=== PATIENT | female | born 1950 | race Caucasian/White ===

== ENCOUNTER 2016-05-13 20:54 | Inpatient (IN) | payer BC ==
[2016-05-13] MEDS ORDERED: SODIUM CHLORIDE 0.9% 500 ML IV STA (21:26)
[2016-05-13 22:00] LABS: Basophils # (A) 0.1 k/uL (0-0.2); Basophils % (A) 1 %; CH 32.3; CHCM 33.6; Eosinophils # (A) 0.1 k/uL (0-0.7); Eosinophils % (A) 2 %; HCT 41.6 % (34.0-46.0); HDW 2.26; HGB 13.7 gm/dL (11.4-16.0); Luc # (Auto) 0.05; Luc % (Auto) 1; Lymphocytes # (A) 0.6 k/uL (1.0-4.8); Lymphocytes % (A) 13 %; MCH 31.7 pg (25.0-35.0); MCHC 32.8 g/dL (31.0-37.0); MCV 96.6 fL (80.0-100.0); Mean Platelet Volume 8.1; Monocytes # (A) 0.4 k/uL (0-1.0); Monocytes % (A) 9 %; Neutrophils # (A) 3.1 k/uL (1.3-7.7); Neutrophils % (A) 73 %; RDW 13.8 % (11.5-15.5); WBC 4.3 k/uL (3.8-10.6); WBC (Perox) 4.34
[2016-05-13 22:10] LABS: ALT 48 U/L (9-52); AST 28 U/L (14-36); Alkaline Phosphatase 89 U/L (38-126); Anion Gap 12 mmol/L; Blood Urea Nitrogen 14 mg/dL (7-17); Calcium 9.2 mg/dL (8.4-10.2); Carbon Dioxide 28 mmol/L (22-30); Chloride 103 mmol/L (98-107); Glucose 97 mg/dL (74-99); Non-African American GFR(MDRD) >60 (>60 ml/min/1.73 sqM); Potassium 3.8 mmol/L (3.5-5.1); Sodium 143 mmol/L (137-145); Total Bilirubin 0.9 mg/dL (0.2-1.3); Total Protein 6.3 g/dL (6.3-8.2)
[2016-05-13 22:12] LABS: Partial Thromboplastin Time 24.5 sec (22.0-30.0); Prothrombin Time 10.3 sec (9.0-12.0)
--- NOTE | 2016-05-13 22:25 | XR ---
EXAMINATION TYPE: XR chest 2V DATE OF EXAM: 05/13/2016 10:20 PM COMPARISON: 06/14/2014 HISTORY: Weakness TECHNIQUE: Frontal and lateral views of the chest are obtained. FINDINGS: Heart and mediastinum are normal. Lungs are clear. Diaphragm is normal. Bony thorax is int act. IMPRESSION: Normal chest. No change.
[2016-05-13 22:31] LABS: Appearance,Urine Clear (Clear); Bacteria,Urine Rare /hpf; Bilirubin,Urine Negative (Negative); Glucose,Urine (UA) Negative (Negative); Ketones,Urine Negative (Negative); Leukocyte Esterase,Urine Negative (Negative); Nitrite,Urine Negative (Negative); Particle Count 125; Protein,Urine Negative (Negative); RBC,Urine <1 /hpf (0-5); UA Billing (MACRO vs. MICRO) MICRO; Urobilinogen,Urine <2.0 mg/dL (<2.0); WBC,Urine <1 /hpf (0-5)
[2016-05-13 22:51] LABS: Specific Gravity,Urine 1.003 (1.001-1.035)
[2016-05-13] MEDS ORDERED: NALOXONE 0.4 MG/ML 1 ML VIAL IV PRN (23:01)
[2016-05-13] MEDS ORDERED: ONDANSETRON 4 MG/2 ML VIAL IVP PRN (23:01)
[2016-05-13] MEDS ORDERED: LORazepam 2 MG/ML SYRINGE IV PRN (23:01)
--- NOTE | 2016-05-13 23:01 | ED ---
Weakness HPI - General Chief complaint: Weakness Stated complaint: numbness Time Seen by Provider: 05/13/16 21:26 Source: patient Mode of arrival: wheelchair Limitations: no limitations - History of Present Illness Initial comments: Patient complains of generalized weakness. She states that she recently had the flu. She has a history of an autoimmune demyelinating peripheral neuropathy disorder. The last time she got the flu, she wound up hitting Guillain-Hernandez syndrome. She is concerned that given the worsening in her generalized weakness that this could be going on now. She does not have any chest pain or shortness of breath. She has no belly or back pain. She has not taken any medication for the symptoms. She has no focal deficits. Her weakness does not localize anywhere. She has no headache. She does not currently have change in vision or hearing. She has no neck pain or stiffness. She has no palpitations. She was exposed to a sick contact at home. - Related Data Home Medications Medication Instructions Recorded Confirmed [place]-3 Fatty Acids/Fish Oil [Fish 1 cap PO DAILY 05/13/16 05/13/16 Oil 1,000 mg Softgel] Osteo Minerals 1 cap PO DAILY 05/13/16 05/13/16 Selenium 100 mcg PO DAILY 05/13/16 05/13/16 Sun Chorella Vitamin 1 tab PO DAILY 05/13/16 05/13/16 Vitamin B Complex Powder 0.5 dose PO DAILY 05/13/16 05/13/16 Allergies Allergy/AdvReac Type Severity Reaction Status Date / Time diphenhydramine Allergy Dyspnea Verified 05/13/16 21:16 [From Benadryl] Review of Systems ROS Statement: Those systems with pertinent positive or pertinent negative responses have been documented in the HPI. ROS Other: All systems not noted in ROS Statement are negative. Past Medical History Past Medical History: Neurologic Disorder Additional Past Medical History / Comment(s): autoimmune disorder. 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 Respiratory distress/ intubated History of Any Multi-Drug Resistant Organisms: None Reported Past Surgical History: Section, Hysterectomy, Orthopedic Surgery Additional Past Surgical History / Comment(s): Open reduction and internal fixation of the right ankle due to fracture, lumbar puncture. Past Anesthesia/Blood Transfusion Reactions: No Reported Reaction Past Psychological History: No Psychological Hx Reported Smoking Status: Former smoker Past Alcohol Use History: Occasional Additional Past Alcohol Use History / Comment(s): smoked from 12-18 Past Drug Use History: None Reported - Past Family History Mother Family Medical History: AFIB (Mother is 88-year-old has history of atrial fibrillation CVA/TIA.), Cancer, CVA/TIA Additional Family Medical History / Comment(s): Rectal Ca Father Family Medical History: Osteoarthritis (OA) (Father is a 92-year-old history of osteoarthritis) Brother(s) Family Medical History: Diabetes Mellitus (She has 2 older brothers one of her brothers was diagnosed with diabetes mellitus type 2.) Sister(s) Family Medical History: Musculoskeletal Disorder (2 younger sisters with the diagnosis of Lyme disease in 1 was diagnosed with fibromyalgia.) General Exam Limitations: no limitations General appearance: alert, in no apparent distress Head exam: Present: atraumatic, normocephalic, normal inspection Eye exam: Present: normal appearance, PERRL, EOMI. Absent: scleral icterus, conjunctival injection, periorbital swelling ENT exam: Present: normal exam, mucous membranes moist Neck exam: Present: normal inspection. Absent: tenderness, meningismus, lymphadenopathy Respiratory exam: Present: normal lung sounds bilaterally. Absent: respiratory distress, wheezes, rales, rhonchi, stridor Cardiovascular Exam: Present: regular rate, normal rhythm, normal heart sounds. Absent: systolic murmur, diastolic murmur, rubs, gallop, clicks GI/Abdominal exam: Present: soft, normal bowel sounds. Absent: distended, tenderness, guarding, rebound, rigid Extremities exam: Present: normal inspection, full ROM, normal capillary refill. Absent: tenderness, pedal edema, joint swelling, calf tenderness Back exam: Present: normal inspection Neurological exam: Present: alert, oriented X3, CN II-XII intact Psychiatric exam: Present: normal affect, normal mood Skin exam: Present: warm, dry, intact, normal color. Absent: rash Course Vital Signs 05/13/16 20:56 Temperature 98.4 F Pulse Rate 72 Respiratory 20 Rate Blood Pressure 147/82 O2 Sat by Pulse 95 Oximetry EKG Findings - EKG Comments: EKG Findings:: Twelve-lead EKG obtained, interpreted by me as showing ventricular rate 69 bpm, normal NC interval and QRS complexes, no ST elevation or depression, interpreted by me as normal sinus rhythm. Medical Decision Making - Medical Decision Making Patient complains of weakness. I'm concerned for a decompensation of her chronic demyelinating disorder. As this could be the onset of Guullon-hernandez syndrome, patient will be admitted to the hospital. - Lab Data Result diagrams: 05/13/16 21:45 05/13/16 21:45 Lab Results 05/13/16 05/13/16 05/13/16 Range/Units 21:45 21:45 21:45 WBC 4.3 (3.8-10.6) k/uL RBC 4.30 (3.80-5.40) m/uL Hgb 13.7 (11.4-16.0) gm/dL Hct 41.6 (34.0-46.0) % MCV 96.6 (80.0-100.0) fL MCH 31.7 (25.0-35.0) pg MCHC 32.8 (31.0-37.0) g/dL RDW 13.8 (11.5-15.5) % Plt Count 208 (150-450) k/uL Neutrophils % 73 % Lymphocytes % 13 % Monocytes % 9 % Eosinophils % 2 % Basophils % 1 % Neutrophils # 3.1 (1.3-7.7) k/uL Lymphocytes # 0.6 L (1.0-4.8) k/uL Monocytes # 0.4 (0-1.0) k/uL Eosinophils # 0.1 (0-0.7) k/uL Basophils # 0.1 (0-0.2) k/uL PT (9.0-12.0) sec INR (<1.1) APTT (22.0-30.0) sec Sodium 143 (137-145) mmol/L Potassium 3.8 (3.5-5.1) mmol/L Chloride 103 (98-107) mmol/L Carbon Dioxide 28 (22-30) mmol/L Anion Gap 12 mmol/L BUN 14 (7-17) mg/dL Creatinine 0.67 (0.52-1.04) mg/dL Est GFR (MDRD) Af Amer >60 (>60 ml/min/1.73 sqM) Est GFR (MDRD) Non-Af >60 (>60 ml/min/1.73 sqM) Glucose 97 (74-99) mg/dL Plasma Lactic Acid Gary 0.6 L (0.7-2.0) mmol/L Calcium 9.2 (8.4-10.2) mg/dL Magnesium 2.0 (1.6-2.3) mg/dL Total Bilirubin 0.9 (0.2-1.3) mg/dL AST 28 (14-36) U/L ALT 48 (9-52) U/L Alkaline Phosphatase 89 (38-126) U/L Troponin I (0.000-0.034) ng/mL Total Protein 6.3 (6.3-8.2) g/dL Albumin 3.9 (3.5-5.0) g/dL Urine Color Urine Appearance (Clear) Urine pH (5.0-8.0) Ur Specific [place] (1.001-1.035) Urine Protein (Negative) Urine Glucose (UA) (Negative) Urine Ketones (Negative) Urine Blood (Negative) Urine Nitrate (Negative) Urine Bilirubin (Negative) Urine Urobilinogen (<2.0) mg/dL Ur Leukocyte Esterase (Negative) Urine RBC (0-5) /hpf Urine WBC (0-5) /hpf Urine Bacteria (None) /hpf 05/13/16 05/13/16 05/13/16 Range/Units 21:45 21:45 22:15 WBC (3.8-10.6) k/uL RBC (3.80-5.40) m/uL Hgb (11.4-16.0) gm/dL Hct (34.0-46.0) % MCV (80.0-100.0) fL MCH (25.0-35.0) pg MCHC (31.0-37.0) g/dL RDW (11.5-15.5) % Plt Count (150-450) k/uL Neutrophils % % Lymphocytes % % Monocytes % % Eosinophils % % Basophils % % Neutrophils # (1.3-7.7) k/uL Lymphocytes # (1.0-4.8) k/uL Monocytes # (0-1.0) k/uL Eosinophils # (0-0.7) k/uL Basophils # (0-0.2) k/uL PT 10.3 (9.0-12.0) sec INR 1.0 (<1.1) APTT 24.5 (22.0-30.0) sec Sodium (137-145) mmol/L Potassium (3.5-5.1) mmol/L Chloride (98-107) mmol/L Carbon Dioxide (22-30) mmol/L Anion Gap mmol/L BUN (7-17) mg/dL Creatinine (0.52-1.04) mg/dL Est GFR (MDRD) Af Amer (>60 ml/min/1.73 sqM) Est GFR (MDRD) Non-Af (>60 ml/min/1.73 sqM) Glucose (74-99) mg/dL Plasma Lactic Acid Gary (0.7-2.0) mmol/L Calcium (8.4-10.2) mg/dL Magnesium (1.6-2.3) mg/dL Total Bilirubin (0.2-1.3) mg/dL AST (14-36) U/L ALT (9-52) U/L Alkaline Phosphatase (38-126) U/L Troponin I <0.012 (0.000-0.034) ng/mL Total Protein (6.3-8.2) g/dL Albumin (3.5-5.0) g/dL Urine Color Colorless Urine Appearance Clear (Clear) Urine pH 6.0 (5.0-8.0) Ur Specific [place] 1.003 (1.001-1.035) Urine Protein Negative (Negative) Urine Glucose (UA) Negative (Negative) Urine Ketones Negative (Negative) Urine Blood Small H (Negative) Urine Nitrate Negative (Negative) Urine Bilirubin Negative (Negative) Urine Urobilinogen <2.0 (<2.0) mg/dL Ur Leukocyte Esterase Negative (Negative) Urine RBC <1 (0-5) /hpf Urine WBC <1 (0-5) /hpf Urine Bacteria Rare H (None) /hpf Disposition Clinical Impression: Guillain-Riggins syndrome Disposition: ADMITTED IP TO THIS [facility] Condition: Fair Time of Disposition: 23:01
[2016-05-14 00:50] VITALS: BMI 18.4
[2016-05-14] MEDS: FAMOTIDINE 20 MG TAB PO SCH ×2 (11:13→20:36)
--- NOTE | 2016-05-14 17:34 | HP ---
DATE OF ADMISSION: CHIEF COMPLAINT: Generalized weakness. HISTORY OF PRESENT ILLNESS: Ms. 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 The patient felt her mouth was numb and she is concerned about she might have Guillain-Hernandez? syndrome which made her to come to the hospital. Patient's was also having flulike symptoms a day before her symptoms. Otherwise, patient denied any complaints of chest pain. No short of breath. The patient feels that she is having generalized weakness and walking with walker. No focal deficits have been identified. Denied any headache, dizziness or lightheadedness. No blurring of vision. No neck stiffness. Denied any recent travel. REVIEW OF SYSTEMS: CONSTITUTIONAL: Denied any fever or chills. Patient does have generalized weakness and malaise. RESPIRATORY: No cough or sputum production. CARDIOVASCULAR: No chest pain or short of breath. No leg swelling. ABDOMEN: Patient does have nausea or vomiting and no abdominal pain. NEUROLOGIC: Anxious. GENITOURINARY: Negative. ENDOCRINE: Negative. PSYCHIATRY: Negative. SKIN: Negative. All other fourteen-point review of systems negative except as above. 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 PAST SURGICAL HISTORY: , hysterectomy, orthopedic surgery, ( ) right ankle due to fracture, lumbar puncture. SOCIAL HISTORY: Patient is a former smoker. Occasional alcohol use. Denied any drugs or IVDU. FAMILY HISTORY: Mother had atrial fibrillation, cerebrovascular accident/transient ischemic attack and rectal cancer. Father had ( ) abnormalities. Brother had diabetes mellitus. Sisters have musculoskeletal disorder, fibromyalgia. Home medications include: [place]-3 fatty acids, osteo ( ), selenium, ( ) regimen, Vitamin B complex powder. ALLERGIES INCLUDE DIPHENHYDRAMINE. PHYSICAL EXAMINATION: A 66-year-old female lying in bed, awake, alert, oriented x3, appears to be in no apparent distress. VITALS: Blood pressure is 123/60, pulse is 77, respiratory rate 16, temperature afebrile, pulse ox 99% on room air. HEENT: Atraumatic, normocephalic. Neck is supple. No JVD. CVS: S1, S2 heard. No murmurs, no gallop, no rub. LUNGS: Bilateral air entry is present. No wheezing. No crackles. Nonlabored breathing. ABDOMEN: Soft, nontender. Bowel sounds are present. WEAVER HAND LOOM: Awake, alert, oriented x3. No focal neural deficit at this time. Mild ( ) in 4 extremities. EXTREMITIES: No edema. Pulses are palpable bilaterally. No clubbing or cyanosis. PSYCHIATRIC: Cooperative. Anxious. LABORATORY DATA: WBC is 4.3, hemoglobin 13.7, platelets 208, INR is 1.0. Sodium 143, potassium 3.8, chloride 103, bicarb is 28. BUN 14, creatinine 0.67, lactic acid 0.6. Calcium 9.2, magnesium 2.0, liver enzymes and alkaline phosphatase within normal limits. Troponin negative. UA negative. Chest x-ray, no acute pulmonary process. EKG showed normal sinus rhythm. IMPRESSION: 1. Generalized weakness, suspected Guillain-Hernandez? syndrome. 2. 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 3. Chronic inflammatory demyelinating polyneuropathy. 4. Vitamin D deficiency. 5. History of meningioma. 6. History of gait dysfunction. 7. History of endometriosis. 8. Nausea and vomiting, improved with symptomatic management. 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 Patient will be continued on symptomatic management for nausea, vomiting and neurology has been consulted for further evaluation. Otherwise, patient does not have any proximal weakness. No fever. No chills. No neck stiffness. Patient is being continued and monitored and neurology has been consulted for further evaluation. Further recommendations based on the clinical course.
[2016-05-14] MEDS ORDERED: IMMUNE GLOBULIN 1 GM/10 ML VL IV SCH (19:45)
[2016-05-14] MEDS: GABAPENTIN 300 MG CAP PO SCH (20:36)
[2016-05-14] MEDS ORDERED: IMMUNE GLOBULIN (HUMAN-IGG) 20 GM in EMPTY BAG 1 BAG IV ONE (21:00)
[2016-05-14] MEDS: diphenhydrAMINE 25 MG CAP PO PRN (22:12)
--- NOTE | 2016-05-14 22:26 | CONS ---
DATE OF CONSULTATION: 05/14/2016 CHIEF COMPLAINT: Numbness and weakness. HISTORY OF PRESENT ILLNESS: Mrs. Handy is a pleasant 66-year-old female who is being evaluated by the neurology service per the request of Dr. Seo for the above-mentioned complaints. The patient was brought into [facility] with complaints of numbness and weakness that have been gradually getting worse over the past week. The numbness started in her left face and is now involving her upper and lower extremities. She denies any progression since her admission, which was yesterday. She also feels weakness in her legs and upper extremities. She informs me that she was diagnosed with chronic inflammatory demyelinating polyneuropathy a few years ago. She was receiving IV Ig every 3 weeks, but she stopped this over one year ago. She also informs me that she was having flu-like symptoms approximately one week ago prior to her symptoms beginning. She is noticing that her speech is slightly slurred and reports some symptoms of dysphagia. She denies any choking. She has been having difficulty ambulating and is requiring assistance. She is also complaining of lower extremity pain that is worsened at night and has been keeping her from sleeping. She had been on Neurontin in the past for these symptoms but is no longer taking this medication. At the time of my evaluation, she is lying in her bed and appears to be in no acute distress. She denies any progression in her symptoms since her admission. The patient did have a recent MRI of the brain which was done a few months ago, and I did review the study, which showed no acute intracranial abnormalities. A small meningioma was seen in the midline, and this was felt to be unchanged in size when compared to her 2013 MRI of the brain. No central nervous system demyelination is seen. On this admission, her CBC, comprehensive metabolic profile, cardiac enzymes and urinalysis were normal. PAST MEDICAL HISTORY: 1. Chronic inflammatory demyelinating polyradiculoneuropathy. 2. History of meningioma. 3. Vitamin D deficiency. 4. Endometriosis. 5. History of . 6. Hysterectomy. 7. Right ankle surgery. SOCIAL HISTORY: The patient is a former smoker. She occasionally drinks alcohol. She denies any drug use. FAMILY HISTORY: Positive for heart disease, cancer and diabetes. HOME MEDICATIONS: Reviewed in the chart. ALLERGIES: BENADRYL. REVIEW OF SYSTEMS: CONSTITUTIONAL: Positive for fatigue. EYES: Positive for occasional double vision. ENT: Negative. CARDIOVASCULAR: Negative. RESPIRATORY: Negative. NEUROLOGICAL: As mentioned above. GASTROINTESTINAL: Positive for recent nausea and vomiting, which have resolved at this time. GENITOURINARY: Negative. PSYCHIATRIC: Negative. ENDOCRINE: Negative. MUSCULOSKELETAL: Negative. DERMATOLOGICAL: Negative. PHYSICAL EXAM: Vital signs show a temperature of 98.1, pulse 86, respiration 18, blood pressure 128/59. GENERAL APPEARANCE: The patient is a well-developed, thin female who appears to be in no acute distress. HEENT: Normocephalic, atraumatic. Extraocular muscles are intact. Mild right facial droop is seen. Neck is supple with no masses felt. CARDIOVASCULAR: Regular rate and rhythm. ABDOMEN: Nontender, nondistended. Extremities showed no edema or clubbing. High-arched feet are noticed. NEUROLOGICAL EXAM: The patient is alert, aware and oriented x3. Speech is mildly dysarthric. Language testing is normal. Sensory exam showed diminished light touch sensation in all 4 extremities distally. Strength is 5-/5 in all 4 extremities. Postural tremors are seen. Deep tendon reflexes are hyporeflexive. Cranial nerve testing showed mild right facial droop and slightly reduced sensation on the left face compared to the right. IMPRESSION: 1. Generalized numbness. 2. Mild generalized weakness. 3. History of chronic inflammatory demyelinating polyradiculoneuropathy. 4. Lower extremity pain, likely due to restless leg syndrome. 5. Dysarthria with mild dysphagia. RECOMMENDATION: The patient does have a complicated history with chronic demyelinating neuropathy, likely due to CIDP. She does have high-arched feet, and the diagnosis of [id number] syndrome needs to be considered. Further outpatient genetic workup will be ordered along with nerve conduction studies and EMGs. She is having more acute symptoms at this time which were likely exacerbated by her flu-like illness. She is having sensory loss and weakness. This has not progressed over the past 24 hours. I will start her on IV Ig 0.4 g/kg daily for the next 5 days. I will order her daily BUN and creatinine. The patient has received IV Ig in the past with no difficulties tolerating the treatments. I will consult Physical Therapy and Speech Therapy. The patient will be admitted as a full admission, and I do recommend a private room to avoid any ill contacts with other patients. Continue neuro checks. I did review her recent MRI of the brain, which showed no evidence of any central nervous system demyelination. She does have a very small meningioma, which has not changed in size when compared to her 2013 study. Continue the rest of your current workup and management. I will continue to follow with you. Further recommendations to follow. Thank you for allowing me to participate in the care of your patient. If you have any questions, please feel free to contact me.
[2016-05-15] MEDS: FAMOTIDINE 20 MG TAB PO SCH ×2 (07:56→20:33)
[2016-05-15] MEDS ORDERED: NON-FORMULARY DRUG (Omega-3 Fatty Acids/Fish Oil [Fish Oil 1,000 Mg Softgel] 1 CAP) PO SCH (09:00)
[2016-05-15] MEDS: B COMPLEX-VIT C-VIT E-ZINC 1 EACH TAB PO SCH (13:03)
--- NOTE | 2016-05-15 14:33 | P.PN ---
Subjective Principal diagnosis: Numbness and weakness This is a pleasant 66-year-old female continuing be evaluated by the neurology service. Her initial complaints were numbness and weakness progressing gradually over the course of week. Initial symptoms were on the left side of the face and had moved to her upper and lower extremities. She has a history of chronic inflammatory demyelinating polyneuropathy. Up to about a year ago she had been receiving IVIG every 3 weeks. About a week ago she developed flulike symptoms. Today she denies any symptoms of dysphagia or choking. She is still needing assistance ambulating. She was started on IVIG yesterday and feels that this is helping especially with her upper extremity symptoms. Again we did review a fairly recent MRI that showed a stable small meningioma unchanged when compared to her 2013 MRI. She is tolerating the IVIG treatment well. She has no new significant symptoms. Objective - Vital Signs Vital signs: Vital Signs Temp 97.2 F L 05/15/16 07:00 Pulse 70 05/15/16 07:00 Resp 16 05/15/16 07:00 BP 123/67 05/15/16 07:00 Pulse Ox 98 05/15/16 07:00 Intake & Output 05/14/16 05/15/16 05/15/16 18:59 06:59 18:59 Other: # Voids 2 1 - Constitutional General appearance: Present: thin - EENT Eyes: Present: EOMI, PERRLA. Absent: abnormal pupil, ptosis ENT: Present: hearing grossly normal - Neck Neck: Present: normal ROM. Absent: rigidity - Respiratory Respiratory: negative: prolonged expiration, prolonged inspiration - Cardiovascular Rhythm: regular - Gastrointestinal General gastrointestinal: Absent: distended, tenderness - Neurologic Neurologic Comment(s): She is alert awake and oriented 3. Speech and language are normal. Sensory exam showed diminished light touch of the feet, but normal sensation from the ankles up. There is a mild sensory deficit in bilateral upper extremities. Strength remains 5 minus out of 5 in all 4 extremities. She is hyporeflexive. There remains a faint left-sided facial asymmetry. No sensory deficit to the left face compared to the right. - Labs CBC & Chem 7: 05/13/16 21:45 05/13/16 21:45 Assessment and Plan (1) Numbness and tingling Status: Acute (2) Generalized weakness Status: Acute (3) Chronic inflammatory demyelinating polyneuropathy Status: Chronic (4) Dysarthria Status: Acute Plan: The patient is doing well on the current treatment of IVIG. We will continue that for a total of 5 days. As mentioned before we will workup in an outpatient setting for a possible diagnosis of [id number] syndrome. Please continue with physical and speech therapy. Continue neurological checks. We will continue to follow. I have performed a history and physical on the above patient. I have reviewed the above note, and agree.
[2016-05-15] MEDS: GABAPENTIN 300 MG CAP PO SCH (20:34)
[2016-05-15] MEDS ORDERED: IMMUNE GLOBULIN (HUMAN-IGG) 20 GM in EMPTY BAG 1 BAG IV ONE (21:00)
[2016-05-16] MEDS: HEPARIN SODIUM,PORCINE 5,000 UNIT/ML 1 ML VIAL SQ SCH ×2 (08:03→21:18)
[2016-05-16] MEDS: FAMOTIDINE 20 MG TAB PO SCH ×2 (08:03→21:18)
--- NOTE | 2016-05-16 10:40 | PN ---
DATE OF SERVICE: 05/15/2016 INTERVAL HISTORY: Ms. Handy is a 66-year-old female with a known history of chronically inflammatory demyelinating polyneuropathy and was on immunoglobin therapy until about a year ago and history of stable meningioma as per recent MRI was admitted to the hospital with bilateral lower extremity weakness and numbness. The patient was started on immunoglobulin therapy as per neurology recommendations. Otherwise, the patient states that it did improve upper extremity strength. Otherwise, patient is to be requiring support for ambulation. No fever. No chills. No acute overnight issues. No focal neurologic deficit noted. No current complains of fever or chills. No complaints of chest pain or short of breath. No nausea or vomiting, abdominal pain, diarrhea. All other fourteen-point review of systems negative except as above. Current medications reviewed. PHYSICAL EXAMINATION: A 66-year-old female lying in the bed. Awake, alert, oriented x3, appears to be no apparent distress. VITALS: Blood pressure is 119/66, pulse 84, respirations 16, temperature afebrile, pulse ox 94% on room air. HEENT: Atraumatic, normocephalic. Neck is supple. No JVD. CVS: S1, S2 heard. No murmur, no gallop. LUNGS: Bilateral air entry is present. No wheezing, no crackles. ABDOMEN: Soft, nontender. Bowel sounds present. [employer] TEAM MEMBER: Awake, alert, oriented x3. Patient does have bilateral lower extremity weakness with mild strength 4/5 and upper extremities 5/5. EXTREMITIES: No edema. Pulses palpable bilaterally. No clubbing or cyanosis. PSYCHIATRIC: Cooperative. Laboratory data reviewed. IMPRESSION: 1. Generalized weakness and numbness and tingling of the extremities with history of chronic inflammatory demyelinating polyneuropathy. Patient was started on immunoglobulin therapy as per Neurology recommendations. 2. 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 3. Stable meningioma as per recent MRI report. 4. Gait dysfunction. 5. Endometriosis history. 6. Vitamin D deficiency. 7. Nausea, vomiting on admission, improved now 8. Deep venous thrombosis prophylaxis. Will start on heparin subcu. DISCUSSION AND PLAN: A 66-year-old female with known history of chronic inflammatory demyelinating disease, was admitted to the hospital with generalized weakness and numbness and tingling with improvement of symptoms with immunoglobulin therapy. Neurology is following this patient. Will continue the PT, OT and continue the current management and further recommendations based on the clinical course. The patient says there is improvement in her upper extremity weakness.
[2016-05-16] MEDS: B COMPLEX-VIT C-VIT E-ZINC 1 EACH TAB PO SCH (12:41)
--- NOTE | 2016-05-16 14:18 | P.PN ---
Subjective Principal diagnosis: Numbness and weakness This is a pleasant 66-year-old female continuing be evaluated by the neurology service. Her initial complaints were numbness and weakness progressing gradually over the course of week. Initial symptoms were on the left side of the face and had moved to her upper and lower extremities. She has a history of chronic inflammatory demyelinating polyneuropathy. Up to about a year ago she had been receiving IVIG every 3 weeks. About a week ago she developed flulike symptoms. Today she denies any symptoms of dysphagia or choking. She is still needing assistance ambulating. She was started on IVIG yesterday and feels that this is helping especially with her upper extremity symptoms. Again we did review a fairly recent MRI that showed a stable small meningioma unchanged when compared to her 2013 MRI. She is tolerating the IVIG treatment well. She has no new significant symptoms. Objective - Vital Signs Vital signs: Vital Signs Temp 98.6 F 05/16/16 07:00 Pulse 68 05/16/16 07:00 Resp 20 05/16/16 07:00 BP 119/63 05/16/16 07:00 Pulse Ox 99 05/16/16 07:00 Intake & Output 05/15/16 05/16/16 05/16/16 18:59 06:59 18:59 Intake Total 650 Balance 650 Intake: Oral 650 Other: # Voids 1 1 - Constitutional General appearance: Present: thin - EENT Eyes: Present: EOMI, PERRLA. Absent: abnormal pupil, ptosis ENT: Present: hard of hearing, hearing grossly normal - Neck Neck: Present: normal ROM. Absent: rigidity - Respiratory Respiratory: negative: prolonged expiration, prolonged inspiration - Cardiovascular Rhythm: regular - Neurologic Neurologic Comment(s): She is alert awake and oriented 3. Speech-language are normal. She remains hyporeflexive. There is no new strength deficit. Sensory deficit remains in bilateral feet but is improved from yesterday. No tremors or seizure-like activities are seen. - Labs CBC & Chem 7: 05/13/16 21:45 05/13/16 21:45 Assessment and Plan (1) Numbness and tingling Status: Acute (2) Generalized weakness Status: Acute (3) Chronic inflammatory demyelinating polyneuropathy Status: Chronic (4) Dysarthria Status: Acute Plan: The patient is doing well on the current treatment of IVIG. We will continue that for a total of 5 days. As mentioned before we will workup in an outpatient setting for a possible diagnosis of Cxbzdby-Nxrfk-Izqec syndrome. Please continue with physical, occupational, and speech therapy. Continue neurological checks. We will continue to follow. I have performed a history and physical on the above patient. I have reviewed the above note, and agree.
[2016-05-16] MEDS ORDERED: IMMUNE GLOBULIN (HUMAN-IGG) 20 GM in EMPTY BAG 1 BAG IV ONE (21:00)
[2016-05-16] MEDS: GABAPENTIN 300 MG CAP PO SCH (21:03)
[2016-05-17] MEDS: ACETAMINOPHEN TAB 325 MG TAB PO PRN ×3 (05:11→22:12)
[2016-05-17 08:47] LABS: Basophils % (A) 0 %; CH 32.2; CHCM 33.8; Eosinophils # (A) 0.1 k/uL (0-0.7); Eosinophils % (A) 2 %; HCT 39.1 % (34.0-46.0); HDW 2.31; HGB 12.8 gm/dL (11.4-16.0); Luc # (Auto) 0.12; Luc % (Auto) 3; Lymphocytes # (A) 0.8 k/uL (1.0-4.8); Lymphocytes % (A) 19 %; MCH 31.3 pg (25.0-35.0); MCHC 32.7 g/dL (31.0-37.0); MCV 95.8 fL (80.0-100.0); Mean Platelet Volume 7.5; Monocytes # (A) 0.4 k/uL (0-1.0); Monocytes % (A) 8 %; Neutrophils # (A) 2.9 k/uL (1.3-7.7); Neutrophils % (A) 68 %; RBC 4.09 m/uL (3.80-5.40); RDW 13.4 % (11.5-15.5); WBC 4.3 k/uL (3.8-10.6); WBC (Perox) 4.37
[2016-05-17 09:07] LABS: Anion Gap 13 mmol/L; Blood Urea Nitrogen 14 mg/dL (7-17); Calcium 9.3 mg/dL (8.4-10.2); Carbon Dioxide 29 mmol/L (22-30); Chloride 102 mmol/L (98-107); Glucose 92 mg/dL (74-99); Non-African American GFR(MDRD) >60 (>60 ml/min/1.73 sqM); Potassium 3.6 mmol/L (3.5-5.1); Sodium 144 mmol/L (137-145)
[2016-05-17] MEDS: FAMOTIDINE 20 MG TAB PO SCH ×2 (10:07→20:47)
[2016-05-17] MEDS: HEPARIN SODIUM,PORCINE 5,000 UNIT/ML 1 ML VIAL SQ SCH ×2 (10:07→20:40)
[2016-05-17] MEDS: B COMPLEX-VIT C-VIT E-ZINC 1 EACH TAB PO SCH (12:06)
--- NOTE | 2016-05-17 15:20 | P.PN ---
Subjective Principal diagnosis: Numbness and weakness This is a pleasant 66-year-old female continuing be evaluated by the neurology service. Her initial complaints were numbness and weakness progressing gradually over the course of week. Initial symptoms were on the left side of the face and had moved to her upper and lower extremities. She has a history of chronic inflammatory demyelinating polyneuropathy. Up to about a year ago she had been receiving IVIG every 3 weeks. About a week ago she developed flulike symptoms. Today she denies any symptoms of dysphagia or choking. She is still needing assistance ambulating. She was started on IVIG and feels that this is helping her symptoms. Again we did review a fairly recent MRI that showed a stable small meningioma unchanged when compared to her 2013 MRI. She is tolerating the IVIG treatment well. She has no new significant symptoms. Objective - Vital Signs Vital signs: Vital Signs Temp 96.7 F L 05/17/16 07:00 Pulse 71 05/17/16 07:00 Resp 16 05/17/16 07:00 BP 117/57 05/17/16 07:00 Pulse Ox 95 05/17/16 07:00 Intake & Output 05/16/16 05/17/16 05/17/16 18:59 06:59 18:59 Intake Total 200 500 120 Balance 200 500 120 Intake: Oral 200 500 120 Other: Voiding Method Toilet Toilet Bedside Commode Bedside Commode # Voids 2 1 - Constitutional General appearance: Present: thin - EENT Eyes: Present: EOMI, PERRLA. Absent: abnormal pupil, ptosis ENT: Present: hearing grossly normal - Cardiovascular Rhythm: regular - Gastrointestinal General gastrointestinal: Absent: distended, tenderness - Neurologic Neurologic Comment(s): She is alert awake and oriented 3. Speech is mildly dysarthric language is normal. Strength is 5 minus in bilateral upper and lower extremities with fatiguing. Uncoordinated gait. Mild bilateral dysmetria. No tremors or seizure-like activities are seen. Hyporeflexia remains. High arched feet are once again noted. - Labs CBC & Chem 7: 05/17/16 08:11 05/17/16 08:11 Labs: Abnormal Lab Results - Last 24 Hours (Table) 05/17/16 Range/Units 08:11 Lymphocytes # 0.8 L (1.0-4.8) k/uL Assessment and Plan (1) Numbness and tingling Status: Acute (2) Generalized weakness Status: Acute (3) Chronic inflammatory demyelinating polyneuropathy Status: Chronic (4) Dysarthria Status: Acute Plan: The patient is doing well on the current treatment of IVIG. We will continue that for a total of 5 days. As mentioned before we will workup in an outpatient setting for a possible diagnosis of Smyqjxg-Lsshu-Nrjtc syndrome an update nerve conduction and the EMG testing. Please continue with physical, occupational, and speech therapy. We will continue to follow. I have performed a history and physical on the above patient. I have reviewed the above note, and agree.
--- NOTE | 2016-05-17 15:30 | PN ---
DATE OF SERVICE: 05/16/2016 Ms. Handy is a 66 -year-old female with known history of chronic inflammatory demyelinating polyneuropathy, was on immunoglobulin therapy admitted to the hospital and also recommending GMR with MRI recently with stable meningioma was admitted to hospital bilateral lower extremities weakness and numbness and tingling. Patient getting immunoglobulin therapy, neurology is following the patient. Otherwise, the patient is still having bilateral lower extremity weakness and is requiring support for ambulation. Neurology is following the patient and is planning for her to go for workup for Charcot-Caitlin syndrome as an outpatient. Otherwise, the patient denied any fever, chills. No chest pain or short of breath. No acute overnight issues. REVIEW OF SYSTEMS: CONSTITUTIONAL: No fever. No chills. RESPIRATORY: No cough or sputum production. CARDIOVASCULAR: No chest pain or shortness of breath. No leg swelling. ABDOMEN: No nausea, vomiting. NEUROLOGIC: The patient does have bilateral ( ) weakness and numbness and tingling. ( ) when he weakness. PSYCHIATRY: Negative. SKIN: Negative. MUSCULOSKELETAL: Negative. All other 14 point review of systems negative except as above. CURRENT MEDICATIONS: Reviewed. PHYSICAL EXAMINATION: A 66 -year-old female lying in bed comfortably. Awake, alert, oriented x3, appears to be in no apparent distress. VITAL SIGNS: Blood pressure is 118/71, pulse is 70, respiratory rate 18, temperature afebrile, pulse ox 97% on room air. HEENT: Atraumatic, normocephalic. Neck is supple. No JVD. CVS: S1, S2 heard. No murmurs or gallop, no rub. LUNGS: Bilateral air entry is present. No wheezing, no crackles. ABDOMEN: Soft, nontender. Bowel sounds present. CIRCULATION TENDER: Awake, alert, oriented x3. Bilateral lower extremity weakness and upper extremity which is improved now. PSYCHIATRIC: Cooperative. Laboratory data reviewed. ASSESSMENT: 1. Generalized weakness and numbness and tingling of her extremities with history of chronic inflammatory demyelinating polyneuropathy. The patient was started on immunoglobulin therapy for 5 days as per neurology and history of syndrome, and history of Guillian [place] syndrome and history of mechanical ventilation. 2. Stable meningioma as per recent MRI report. 3. Gait dysfunction. 4. Endometriosis history. 5. Vitamin D deficiency. 6. Nausea, vomiting on admission, improved now. 7. Deep venous thrombosis prophylaxis. Continue with the heparin subcutaneously. Discussion and plan; 66 -year-old female admitted to the hospital with generalized weakness and numbness and tingling of the extremities. Currently being continued on immunoglobulin therapy. Neurology is following this patient. We will continue the PT, OT and speech therapy. Follow up closely. Continue neuro checks. Further recommendations based on the clinical course.
[2016-05-17] MEDS ORDERED: IMMUNE GLOBULIN (HUMAN-IGG) 20 GM in EMPTY BAG 1 BAG IV ONE (21:00)
[2016-05-17] MEDS: GABAPENTIN 300 MG CAP PO SCH (22:12)
[2016-05-18] MEDS: ACETAMINOPHEN TAB 325 MG TAB PO PRN ×2 (05:27→21:59)
[2016-05-18 08:40] LABS: Blood Urea Nitrogen 12 mg/dL (7-17); Non-African American GFR(MDRD) >60 (>60 ml/min/1.73 sqM)
[2016-05-18] MEDS: FAMOTIDINE 20 MG TAB PO SCH ×2 (10:46→20:38)
[2016-05-18] MEDS: HEPARIN SODIUM,PORCINE 5,000 UNIT/ML 1 ML VIAL SQ SCH ×2 (10:46→20:38)
[2016-05-18] MEDS: B COMPLEX-VIT C-VIT E-ZINC 1 EACH TAB PO SCH (12:26)
--- NOTE | 2016-05-18 13:25 | P.PN ---
Subjective Principal diagnosis: Numbness and weakness This is a pleasant 66-year-old female continuing be evaluated by the neurology service. Her initial complaints were numbness and weakness progressing gradually over the course of week. Initial symptoms were on the left side of the face and had moved to her upper and lower extremities. She has a history of chronic inflammatory demyelinating polyneuropathy. Up to about a year ago she had been receiving IVIG every 3 weeks. About a week ago she developed flulike symptoms. Today she denies any symptoms of dysphagia or choking. She is still needing assistance ambulating. She was started on IVIG and feels that this is helping her symptoms. Again we did review a fairly recent MRI that showed a stable small meningioma unchanged when compared to her 2013 MRI. She is tolerating the IVIG treatment well. She has no new significant symptoms. Objective - Vital Signs Vital signs: Vital Signs Temp 97.0 F L 05/18/16 07:00 Pulse 62 05/18/16 07:00 Resp 12 05/18/16 07:00 BP 107/55 05/18/16 07:00 Pulse Ox 96 05/18/16 07:00 Intake & Output 05/17/16 05/18/16 05/18/16 18:59 06:59 18:59 Intake Total 320 600 Balance 320 600 Intake: Oral 320 600 Other: Voiding Method Toilet Toilet # Voids 2 1 - Constitutional General appearance: Present: thin - EENT Eyes: Present: PERRLA. Absent: abnormal pupil, ptosis ENT: Present: hearing grossly normal - Respiratory Respiratory: negative: prolonged expiration, prolonged inspiration - Neurologic Neurologic Comment(s): Patient is alert awake and oriented 3. Speech-language are normal. No tremors or seizure-like activities are seen. There is no lateralizing weakness. - Musculoskeletal Musculoskeletal Comment(s): Unsteady Musculoskeletal: Absent: gait normal - Labs CBC & Chem 7: 05/17/16 08:11 05/18/16 08:01 Assessment and Plan (1) Numbness and tingling Status: Acute (2) Generalized weakness Status: Acute (3) Chronic inflammatory demyelinating polyneuropathy Status: Chronic (4) Dysarthria Status: Acute Plan: The patient is doing well on the current treatment of IVIG. We will continue that for a total of 5 days. As mentioned before , we will workup in an outpatient setting for a possible diagnosis of Lsarknd-Maona-Fbxlp syndrome an update nerve conduction and the EMG testing. Please continue with physical, occupational, and speech therapy. We will continue to follow. I have performed a history and physical on the above patient. I have reviewed the above note, and agree.
[2016-05-18] MEDS ORDERED: IMMUNE GLOBULIN (HUMAN-IGG) 20 GM in EMPTY BAG 1 BAG IV ONE (21:00)
[2016-05-18] MEDS: GABAPENTIN 300 MG CAP PO SCH (21:59)
[2016-05-19] MEDS: ACETAMINOPHEN TAB 325 MG TAB PO PRN ×2 (05:10→21:06)
[2016-05-19 08:56] LABS: Blood Urea Nitrogen 14 mg/dL (7-17); Non-African American GFR(MDRD) >60 (>60 ml/min/1.73 sqM)
[2016-05-19] MEDS: FAMOTIDINE 20 MG TAB PO SCH ×2 (10:45→20:52)
[2016-05-19] MEDS: HEPARIN SODIUM,PORCINE 5,000 UNIT/ML 1 ML VIAL SQ SCH ×2 (10:45→20:52)
[2016-05-19] MEDS: B COMPLEX-VIT C-VIT E-ZINC 1 EACH TAB PO SCH (12:01)
[2016-05-19] MEDS: GABAPENTIN 300 MG CAP PO SCH (20:52)
[2016-05-19] MEDS: diphenhydrAMINE 25 MG CAP PO PRN (21:07)
--- NOTE | 2016-05-19 21:12 | P.PN ---
Subjective Principal diagnosis: numbness and weakness Patient is 66-year-old female being followed by neurology. Initial complaints were numbness and weakness progressing gradually over the course of a week. Initial symptoms were on the left side of the face and move to her upper or lower extremities. She has history of chronic inflammatory demyelinating polyneuropathy. Up to about a year ago she had been receiving IVIG every 3 weeks. About a week ago she developed flulike symptoms. She denies any symptoms of dysphagia or choking. She has been up ambulating without assistance today. He states that the IVIG has been helping her in decreasing her symptoms. Recent MRI showed a stable small meningioma unchanged when compared to her 2013 MRI. She tolerated IVIG treatment well. She has no new significant symptoms. On contact today, the patient was supine in bed, resting comfortably in no acute distress. She was alert and oriented 3. Objective - Vital Signs Vital signs: Vital Signs Temp 97.1 F L 05/19/16 15:00 Pulse 61 05/19/16 15:00 Resp 18 05/19/16 15:00 BP 109/54 05/19/16 15:00 Pulse Ox 96 05/19/16 15:00 Intake & Output 05/19/16 05/19/16 05/20/16 06:59 18:59 06:59 Weight 50.34 kg Other: Voiding Method Toilet Toilet # Voids 1 3 - Constitutional General appearance: Present: cooperative, thin - EENT EENT Comment(s): patient utilizes glasses. Eyes: Present: EOMI, PERRLA, normal appearance - Neck Details: supple no masses - Respiratory Details: no increased work of breathing - Cardiovascular Details: regular rate Rhythm: regular - Gastrointestinal Gastrointestinal Comment(s): nontender, nondistended - Neurologic Neurologic Comment(s): patient is alert awake and oriented 3. Speech and language are normal. No tremors or seizure-like activities were seen. No unilateral weakness. Sap Architect strengths are equal bilaterally. Reflexes are equal and symmetrical. Neurologic: Absent: focal deficits - Musculoskeletal Musculoskeletal: Present: strength equal bilaterally - Psychiatric Psychiatric: Present: A&O x's 3, appropriate affect, intact judgment & insight ( nerve conduction study and EMG can be completed outpatient.) - Labs CBC & Chem 7: 05/17/16 08:11 05/19/16 08:19 Assessment and Plan (1) Dysarthria Status: Acute (2) Generalized weakness Status: Acute (3) Numbness and tingling Status: Acute (4) Vitamin D deficiency Status: Acute (5) Chronic inflammatory demyelinating polyneuropathy Narrative/Plan: Patient tolerated the IVIG treatment well. She has returned to baseline. As previously noted in prior neurology note, we will follow-up outpatient for nerve conduction study and EMG testing to investigate further the possible diagnosis of Rsumjku-Qitxy-Ecrjz syndrome. Patient to continue physical, occupational and speech therapy during rehabilitation outpatient. Vitamin D level was requested for assessment of the patient's vitamin D deficiency. This can be followed outpatient. Patient is cleared from a neurological standpoint for discharge. Please inform the patient to contact our office within 48 hours of discharge for a follow-up office visit within 10-14 days. If any further questions please feel free to contact our office. I discussed the patient's pertinent medical information with Dr. Randolph. He agrees with the plan of care as implemented. Status: Chronic
[2016-05-20] MEDS: ACETAMINOPHEN TAB 325 MG TAB PO PRN ×3 (04:16→17:27)
[2016-05-20] MEDS: HEPARIN SODIUM,PORCINE 5,000 UNIT/ML 1 ML VIAL SQ SCH (09:11)
[2016-05-20] MEDS: FAMOTIDINE 20 MG TAB PO SCH (09:11)
[2016-05-20 09:26] LABS: Anion Gap 13 mmol/L; Basophils % (A) 1 %; Blood Urea Nitrogen 12 mg/dL (7-17); CH 32.2; Calcium 9.2 mg/dL (8.4-10.2); Carbon Dioxide 28 mmol/L (22-30); Chloride 102 mmol/L (98-107); Eosinophils # (A) 0.1 k/uL (0-0.7); Eosinophils % (A) 3 %; Glucose 110 mg/dL (74-99); HCT 40.4 % (34.0-46.0); HDW 2.36; HGB 12.7 gm/dL (11.4-16.0); Luc # (Auto) 0.06; Luc % (Auto) 2; Lymphocytes # (A) 0.8 k/uL (1.0-4.8); Lymphocytes % (A) 20 %; MCH 30.9 pg (25.0-35.0); MCHC 31.5 g/dL (31.0-37.0); MCV 98.1 fL (80.0-100.0); Mean Platelet Volume 8.6; Monocytes # (A) 0.3 k/uL (0-1.0); Monocytes % (A) 7 %; Neutrophils # (A) 2.6 k/uL (1.3-7.7); Neutrophils % (A) 68 %; Non-African American GFR(MDRD) >60 (>60 ml/min/1.73 sqM); Potassium 3.8 mmol/L (3.5-5.1); RBC 4.12 m/uL (3.80-5.40); RDW 13.6 % (11.5-15.5); Sodium 143 mmol/L (137-145); WBC 3.9 k/uL (3.8-10.6); WBC (Perox) 3.68
[2016-05-20] MEDS ORDERED: LORATADINE 10 MG TAB PO SCH (10:15)
[2016-05-20] MEDS: B COMPLEX-VIT C-VIT E-ZINC 1 EACH TAB PO SCH (11:25)
[2016-05-20 15:25] VITALS: BP 110/54; PULSE 77; RESP 18; TEMP 96.2
--- NOTE | 2016-06-04 23:43 | DS ---
DATE OF ADMISSION: 05/14/2016 DATE OF DISCHARGE: 05/20/2016 DISCHARGE DIAGNOSES: 1. Generalized weakness, numbness and tingling in bilateral lower extremities with history of chronic inflammatory demyelinating polyneuropathy, improved with Ig immunoglobulin therapy while in the hospital. 2. 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 3. History of mechanical ventilation. 4. Stable meningioma as per recent MRI report. 5. Gait dysfunction. 6. Endometriosis history. 7. Vitamin D deficiency. 8. Nausea, vomiting on admission, improved now. 9. Deep venous thrombosis prophylaxis with heparin subcutaneously. HOSPITAL COURSE: Ms. Handy is a 66-year-old female with known history of chronic inflammatory demyelinating polyneuropathy. She was admitted to the hospital with bilateral lower extremity weakness along with nausea and vomiting and generalized weakness. Patient was treated symptomatically for nausea and vomiting, which are improved now. Due to her history of polyneuropathy, Neurology was consulted and they recommended IV Ig therapy. Patient was started on IV immunoglobulin therapy and her generalized weakness and nausea and vomiting are much improved now. Patient has been getting PT and OT while in the hospital. Currently patient is ambulating without support and to her baseline now. Otherwise, Neurology recommended outpatient workup for Crczbqz-Gpxro-Dndqp syndrome and also EMGs as an outpatient. Otherwise patient is stable to be discharged home with home care therapy for PT and OT and stable to be discharged home at this time. DISCHARGE PHYSICAL EXAMINATION: [age]ab[age]jb-fxvo-old female lying in bed. Awake, alert, oriented x3. No apparent distress. VITALS: Blood pressure is 110/54. Pulse is 77, respiration 18, temperature afebrile, pulse ox 97% on room air. Laboratory data reviewed. WBC 3.9, hemoglobin 12.7, platelets 235. Sodium 143, potassium 3.8, chloride 102. Bicarb is 28. BUN 12, creatinine 0.65. Vitamin D level is 45. Discharge physical examination done. Discharge medications include: 1. Lykens-3 fatty acids 1 capsule p.o. daily. 2. Osteo Minerals 2 tablespoons p.o. daily. 3. Selenium 100 mcg p.o. daily. 4. Sun Chorella vitamin 1 tablet p.o. daily. 5. Vitamin B complex powder 0.5 dose p.o. daily. 6. Pepcid 20 mg p.o. b.i.d. 7. Gabapentin 300 mg p.o. at bedtime. Patient will be discharged home in stable condition. Activity as tolerated. Heart-healthy diet. Follow with Dr. Randolph. Follow with Dr. Thea Mulligan in 3 days. Home with home health care services.
--- NOTE | 2016-06-05 06:05 | PN ---
DATE OF SERVICE: 05/17/2016 INTERVAL HISTORY: Ms. Handy is a 66-year-old female with known history of chronic inflammatory demyelinating polyneuropathy and was on immunoglobin therapy previously. He was admitted to the hospital with bilateral lower extremity weakness and numbness and tingling Patient is getting IV immunoglobulin therapy as per neurology recommendations for a total of 5 days. Currently, patient is still requiring support with ambulation, undergoing PT, OT. Neurology is planning for to workup for Jrxlwns-Noavc-Wamjy syndrome as an outpatient. Otherwise, patient denied any complaints of fever or chills. No acute overnight issues. Still had complaints of bilateral lower extremity weakness. REVIEW OF SYSTEMS: CONSTITUTIONAL: No fever. No chills. RESPIRATORY: No cough or sputum production. CARDIOVASCULAR: No chest pain or short of breath. No leg swelling. ABDOMEN: No nausea, vomiting, abdominal pain. NEUROLOGIC: Patient does have bilateral weakness and numbness and tingling. PSYCHIATRIC: Negative. SKIN: Negative. All other 14-point review of systems negative except the above. CURRENT MEDICATIONS: Reviewed. PHYSICAL EXAMINATION: A 66-year-old female lying in the bed comfortably, awake, alert, oriented x3. Appears to be in no apparent distress. VITALS: Blood pressure is 117/57, pulse is 71, respiratory rate 16, temperature afebrile, pulse ox 95% on room air. HEENT: Atraumatic, normocephalic. Neck is supple. No JVD. CVS EXAM: S1, S2 heard. No murmurs, no gallop. LUNGS: Bilateral air entry is present. No wheezing or crackles. ABDOMEN: Soft, nontender. Bowel sounds are present. MOTHER REPAIRER: Awake, alert, oriented, x3. ( ) 5 out of 5 in all 4 extremities. The patient does have hyporeflexia. SKIN: No rash or skin lesions. EXTREMITIES: No edema. Pulses are palpable bilaterally. No clubbing or cyanosis. PSYCHIATRIC: Cooperative. LABORATORY DATA: WBC 4.3, hemoglobin 12.8, platelets 208. Sodium 144, potassium 3.6, chloride 102, bicarb is 29, BUN 14, creatinine 0.65. Blood sugar is 92. IMPRESSION: 1. Generalized weakness and numbness and tingling to her extremities with history of chronic inflammatory demyelinating polyneuropathy. Patient is currently getting immunoglobulin therapy for a total of 5 days as per neurology. 2. History of Guillain-[place]or[place] syndrome, with history of mechanical ventilation in the past. 3. Stable meningioma as per recent MRI report. 4. Gait dysfunction. 5. Endometriosis history. 6. Vitamin D deficiency. 7. Nausea, vomiting on admission, improved now. 8. Deep venous thrombosis prophylaxis. DISCUSSION AND PLAN: A 66-year-old female admitted to the hospital with bilateral lower extremity numbness and tingling as well as weakness. Currently still requiring support for ambulation ( ) physical therapy. Continue with immunoglobulins as per Neurology and possible transfer to rehab upon discharge. Will continue the current management and further recommendations based on the clinical course.
--- NOTE | 2016-06-05 06:17 | PN ---
DATE OF SERVICE: 05/18/2016 HISTORY OF ILLNESS: Ms. Handy is a 66-year-old female with known history of demyelinating polyneuropathy, chronic inflammatory, was admitted to the hospital with bilateral lower extremity numbness, tingling and generalized weakness, especially on the bilateral lower extremity. Currently getting IV immunoglobulin therapy. Patient says that her ( ) strength is slightly improved today, but still requiring support with ambulation. Otherwise, patient says that she is feeling better now. Otherwise, denied any complaints of chest pain or short of breath. No fever. No chills. No acute overnight issues. REVIEW OF SYSTEMS: CONSTITUTIONAL: No fever. No chills. RESPIRATORY: No cough or sputum production. No short of breath. CARDIOVASCULAR: No chest pain or short of breath. No leg swelling. ABDOMEN: No nausea, vomiting or abdominal pain. GENITOURINARY: Negative. ENDOCRINE: Negative. PSYCHIATRY: Negative. SKIN: Negative. All other 14-point review of systems negative except the above. CURRENT MEDICATIONS: Reviewed. PHYSICAL EXAMINATION: A 66-year-old female lying in bed. Awake, alert, oriented x3, appears to be in no apparent distress. VITALS: Blood pressure is 107/55, pulse is 62, respiration 12, temperature afebrile, pulse ox 96% on room air. HEENT: Atraumatic, normotensive. Neck is supple. No JVD. CVS EXAM: S1, S2 heard. No murmurs, no gallop, no rub. LUNGS: Bilateral air entry is present. No wheezing, no crackles. ABDOMEN: Soft, nontender. Bowel sounds are present. PEWTER FABRICATOR: Awake, alert and oriented x3. No focal neurologic deficits. ( ) strength is a 5 out of 5 in all 4 extremities. EXTREMITIES: No edema. Pulses palpable bilaterally. No clubbing or cyanosis. PSYCHIATRIC: Cooperative. LABORATORY DATA: Reviewed. IMPRESSION: 1. Generalized weakness and numbness and tingling in her extremities with history of chronic inflammatory demyelinating polyneuropathy currently on immunoglobulin therapy for a total of 5 days as per Neurology. 2. History of Guillain-Reno syndrome and history of mechanical ventilation. 3. Stable meningioma as per recent MRI report. 4. Gait dysfunction. 5. Endometriosis history. 6. Vitamin D deficiency. 7. Nausea, vomiting on admission, improved now. 8. Deep venous thrombosis prophylaxis with heparin subcu. DISCUSSION AND PLAN: This 66-year-old female admitted to the hospital with generalized weakness, numbness and tingling improving with IV immunoglobulin therapy. Neurology is following this patient and recommended outpatient workup for Dihflbp-Qtaqc-Sfdkw syndrome. Will continue with PT, OT and anticipate discharge to rehab once clinically improved.
--- NOTE | 2016-06-05 06:25 | PN ---
DATE OF SERVICE: 05/19/2016 INTERVAL HISTORY: Ms. Handy is a 66-year-old female with known history of chronic inflammatory demyelinating polyneuropathy was admitted to the hospital with worsening lower extremity swelling, numbness, tingling along with weakness, which is much improved now. Patient is ambulating with a walker. Neurology is following the patient. Continued on IV immunoglobulin now. Recommend outpatient followup as per Neurology and anticipate discharge to rehab depending on her clinical progress. Denied any overnight issues. REVIEW OF SYSTEMS: CONSTITUTIONAL: No fever. No chills. No weakness, malaise. RESPIRATORY: No cough or sputum production. CARDIOVASCULAR: No chest pain or short of breath. ABDOMEN. No nausea, vomiting or abdominal pain. GENITOURINARY: Negative. ENDOCRINE: Negative. PSYCHIATRY: Negative. SKIN: Negative. NEUROLOGIC: Negative except for mild weakness of the extremities. No numbness, tingling. All other 14-point review of system negative except the above. CURRENT MEDICATIONS: Reviewed. PHYSICAL EXAMINATION: A 66-year-old female lying on the bed comfortably, awake, alert, oriented x3, appears to be in no apparent distress. VITALS: Blood pressure is 119/54, pulse is 61, respirations 18, temperature afebrile, pulse ox 96% on room air. HEENT: Atraumatic, normocephalic. Neck is supple. No JVD. CVS EXAM: S1, S2 heard. No murmurs, no gallop, no rub. LUNGS: Bilateral air entry is present. No wheezing. No crackles. Nonlabored breathing. ABDOMEN: Soft, nontender. Bowel sounds are present. 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 No focal neurologic deficits. EXTREMITIES: No edema. Pulses palpable bilaterally. No clubbing or cyanosis. PSYCHIATRIC: Cooperative. LABORATORY DATA: Reviewed. IMPRESSION: 1. Generalized weakness, numbness, tingling with history of chronic inflammatory demyelinating polyneuropathy. Patient is at baseline now. Completed 5 days of immunoglobin therapy as per neurology recommendations. 2. History of Guillain-Enfield syndrome and mechanical ventilation. 3. Stable meningioma as per recent MRI report. 4. Gait dysfunction, improved. 5. Endometriosis history. 6. Vitamin D deficiency. 7. Nausea, vomiting on admission, improved now. 8. Deep venous thrombosis prophylaxis on heparin subcu. DISCUSSION AND PLAN: A 66-year-old female will be continued on PT, OT and continue with the current management and neurology workup as an outpatient for Cshacbs-Nbqrs-Dduma syndrome and anticipate discharge to possible rehab tomorrow.
== END 2016-05-20 18:29 | disposition home health service (06) | DRG 74 ==
LOC: EC 20:54 → 3OBS 23:01 → OBSVTOIN 23:01 → INTOOBSV 05-14 20:02 → OBSVTOIN 05-14 20:02 → 4MS4W 05-14 22:06 → UNDODISIN 05-20 18:29
PROVIDERS: ADMIT Internal Medicine; ATTEND Internal Medicine
DX: G61.81 Chronic inflammatory demyelinating polyneuritis (principal); G61.0 Guillain-Barre syndrome; R13.10 Dysphagia, unspecified; E55.9 Vitamin D deficiency, unspecified; D32.9 Benign neoplasm of meninges, unspecified; G25.81 Restless legs syndrome; R47.1 Dysarthria and anarthria; R26.2 Difficulty in walking, not elsewhere classified; R11.2 Nausea with vomiting, unspecified; M21.6X2 Other acquired deformities of left foot; M21.6X1 Other acquired deformities of right foot; R20.0 Anesthesia of skin; R27.8 Other lack of coordination; G60.0 Hereditary motor and sensory neuropathy; R53.1 Weakness; M79.89 Other specified soft tissue disorders; G47.9 Sleep disorder, unspecified; Z82.69 Family history of other diseases of the musculoskeletal system and connective tissue; Z83.1 Family history of other infectious and parasitic diseases; Z79.899 Other long term (current) drug therapy; Z83.3 Family history of diabetes mellitus; Z87.891 Personal history of nicotine dependence; Z80.0 Family history of malignant neoplasm of digestive organs; Z82.3 Family history of stroke; Z88.8 Allergy status to other drugs, medicaments and biological substances; Z63.79 Other stressful life events affecting family and household; Z90.710 Acquired absence of both cervix and uterus; Z86.19 Personal history of other infectious and parasitic diseases; Z87.81 Personal history of (healed) traumatic fracture; Z87.42 Personal history of other diseases of the female genital tract; Z82.49 Family history of ischemic heart disease and other diseases of the circulatory system; Z87.09 Personal history of other diseases of the respiratory system
CPT/HCPCS: 36415; 71020; 80048; 80053; 81001; 82565; 82652; 83605; 83735; 84484; 84520; 85025; 85610; 85730; 87040; 93005; 96360; 99285

== ENCOUNTER → 2016-10-14 | Outpatient (CLI) | payer BC ==
[~2016-10-14] MED LIST: ACETAMINOPHEN TAB 500 MG TAB PO ONE; IMMUNE GLOBULIN (HUMAN-IGG) 20 GM in EMPTY BAG 1 BAG IV ONE; SODIUM CHLORIDE 0.9% 1,000 ML IV ONE; SODIUM CHLORIDE 0.9% 250 ML in EMPTY BAG 1 BAG IV PRN; SODIUM CHLORIDE 0.9% 500 ML in EMPTY BAG 1 BAG IV PRN; diphenhydrAMINE 50 MG/ML 1 ML VIAL IVP ONE; methylPREDNISolone SOD SUCCI 125 MG/2 ML VIAL IV ONE
[2016-10-14 13:04] VITALS: BP 114/54; PULSE 77
== END | disposition home or self-care (01) ==
LOC: PROCWHC3 09:47
PROVIDERS: ATTEND Psychiatry & Neurology Neurology
DX: G61.81 Chronic inflammatory demyelinating polyneuritis (principal)
CPT/HCPCS: 96361; 96365; 96366; 96375; J1200; J2930; J1569

== ENCOUNTER → 2020-12-15 | Outpatient (CLI) | payer MEDICARE ==
--- NOTE | 2020-12-16 03:59 | MR ---
EXAMINATION TYPE: MR cspine/tspine wo con DATE OF EXAM: 12/15/2020 COMPARISON: None HISTORY: Myelopathy in diseases classified elsewhere, spastic gait Multiplanar multiecho imaging of the cervical and thoracic spine without contrast. Cervical vertebra have normal alignment. There is degenerative disc space narrowing and decreased sig nal in the disks throughout the cervical spine. There is small posterior disc herniations at C5-6 and C6-7. There is small posterior disc bulge at C3-4. There is developmentally adequate spinal canal. T he spinal canal is narrowed to 8 mm at C5-6 which is the narrowest point. Cervical spinal cord shows no edema. The visualized brainstem appears intact. There is mild cervical hypertrophic facet arthropa thy. There is no cervical paraspinal mass. Thoracic vertebra have normal alignment. Disc spaces are fairly normal. There is no compression fract ure. Thoracic spinal cord shows no evidence of a mass. There is no evidence of any significant thorac ic disc herniation. There is no thoracic spinal stenosis. I see no bony destructive process. There is no thoracic paraspinal mass. IMPRESSION: Mild posterior disc herniations at C5-6 and C6-7. No significant spinal stenosis. No focal abnormalit y of the thoracic and cervical spinal cord. No sign of demyelinating disease. No significant bony abn ormality of the thoracic spine.
== END | disposition home or self-care (01) ==
LOC: RADMRIMAIN 12:41
PROVIDERS: ATTEND Psychiatry & Neurology Neurology
DX: M50.222 Other cervical disc displacement at C5-C6 level (principal); G99.2 Myelopathy in diseases classified elsewhere; R26.1 Paralytic gait
CPT/HCPCS: 72141; 72146

== ENCOUNTER → 2021-01-04 | Outpatient (CLI) | payer MEDICARE ==
[2021-01-05 01:15] LABS: Basophils # (A) 0.06 X 10*3/uL (0.00-0.10); Eosinophils # (A) 0.09 X 10*3/uL (0.04-0.35); Eosinophils % (A) 1.5 %; HCT 29.6 % (37.2-46.3); HGB 12.5 g/dL (12.0-15.0); Lymphocytes # (A) 1.73 X 10*3/uL (0.90-5.00); Lymphocytes % (A) 28.8 %; MCH 45.1 pg (27.0-32.0); MCHC 42.2 g/dL (32.0-37.0); MCV 106.9 fL (80.0-97.0); Mean Platelet Volume 12.2 fL (9.5-12.2); Monocytes # (A) 0.55 X 10*3/uL (0.20-1.00); Monocytes % (A) 9.2 %; Neutrophils # (A) 3.56 X 10*3/uL (1.80-7.70); Neutrophils % (A) 59.3 %; Platelet Count 167 X 10*3/uL (140-440); RBC 2.77 X 10*6/uL (4.10-5.20); RDW 16.5 % (11.5-14.5)
[2021-01-05 09:07] LABS: EBV-EA (IgG) 1.3 AI; EBV-EBNA(IgG) >8.0 AI; EBV-VCA (IgG) >8.0 AI; EBV-VCA (IgM) <0.2 AI
[2021-01-05 13:19] LABS: African American GFR (CKD) 87.8 (60.0-200.0); Albumin 4.3 g/dL (3.80-4.90); Albumin/Globulin Ratio 1.08 (1.60-3.17); Anion Gap 11.5 mmol/L (4.00-12.00); BUN/Creat Ratio 16.25 Ratio (12.00-20.00); Calcium 9.7 mg/dL (8.7-10.3); Carbon Dioxide 24.5 mmol/L (21.6-31.8); Non-African American GFR(CKD) 75.8 (60.0-200.0); Potassium 3.9 mmol/L (3.5-5.5); Total Bilirubin 0.7 mg/dL (0.3-1.2); Total Protein 8.3 g/dL (6.2-8.2)
== END | disposition home or self-care (01) ==
LOC: LABWHC1 12:59
PROVIDERS: ATTEND Psychiatry & Neurology Neurology
DX: R53.83 Other fatigue (principal); R06.00 Dyspnea, unspecified; E53.9 Vitamin B deficiency, unspecified; E55.9 Vitamin D deficiency, unspecified
CPT/HCPCS: 36415; 80053; 82525; 82607; 82784; 82785; 84207; 84439; 84443; 84630; 85025; 86663; 86664; 86665

== ENCOUNTER → 2021-01-24 | Outpatient (CLI) | payer MEDICARE | END | disposition home or self-care (01) | LOC: LABWHC1 14:31 | PROVIDERS: ATTEND Psychiatry & Neurology Neurology | DX: G61.81 Chronic inflammatory demyelinating polyneuritis (principal) | CPT/HCPCS: 36415; 82784 ==

== ENCOUNTER → 2021-01-28 | Outpatient (CLI) | payer MEDICARE ==
--- NOTE | 2021-01-29 11:01 | ECHOF ---
Referral Reason:R06.00 Dyspnea MEASUREMENTS -------- HEIGHT: 165.1 cm WEIGHT: 59.0 kg BP: IVSd: 1.2 cm (0.6 - 1.1) LVIDd: 4.2 cm (3.9 - 5.3) LVPWd: 1.2 cm (0.6 - 1.1) IVSs: 1.2 cm LVIDs: 1.7 cm LVPWs: 1.3 cm LAESV Index (A-L): 16.22 ml/m Ao Diam: 2.7 cm (2.0 - 3.7) AV Cusp: 1.5 cm (1.5 - 2.6) LA Diam: 2.3 cm (2.7 - 3.8) MV EXCURSION: 18.919 mm (> 18.000) MV EF SLOPE: 102 mm/s (70 - 150) EPSS: 2.2 cm MV E Theo: 0.85 m/s MV DecT: 190 ms MV A Theo: 0.63 m/s MV E/A Ratio: 1.34 RAP: 5.00 mmHg RVSP: 24.08 mmHg FINDINGS -------- This was a technically good study. The left ventricular size is normal. There is mild concentric left ventricular hypertrophy. Overa ll left ventricular systolic function is normal with, an EF between 55 - 60 %. The diastolic fillin g pattern is normal for the age of the patient 10.17. The right ventricle is normal in size. The left atrial size is normal. Normal LA size by volume 22+/-6 ml/m2. The right atrial size is normal. The aortic valve is trileaflet and appears structurally normal. The mitral valve is normal. Mild mitral regurgitation is present. The tricuspid valve appears structurally normal. Mild tricuspid regurgitation present. Right vent ricular systolic pressure is normal at < 35 mmHg. There is no pulmonic regurgitation present. The aortic root size is normal. Normal inferior vena cava with normal inspiratory collapse consistent with estimated right atrial pre ssure of 5 mmHg. There is no pericardial effusion. CONCLUSIONS -------- 1. The left ventricular size is normal. 2. There is mild concentric left ventricular hypertrophy. 3. Overall left ventricular systolic function is normal with, an EF between 55 - 60 %. 4. The diastolic filling pattern is normal for the age of the patient 10.17 5. Mild mitral regurgitation is present. 6. Mild tricuspid regurgitation present. 7. There is no pericardial effusion. GROUND SUPPORT EQUIPMENT MECHANIC: Neva Cheema RDCS
== END | disposition home or self-care (01) ==
LOC: RADECHMAIN 13:33
PROVIDERS: ATTEND Psychiatry & Neurology Neurology
DX: I51.7 Cardiomegaly (principal); I34.0 Nonrheumatic mitral (valve) insufficiency
CPT/HCPCS: 93306

== ENCOUNTER → 2021-03-07 | Outpatient (CLI) | payer MEDICARE ==
--- NOTE | 2021-03-07 15:05 | MR ---
EXAMINATION TYPE: MR brain wo/w con DATE OF EXAM: 03/07/2021 COMPARISON: MRI brain 02/14/2016 HISTORY: Ataxia, Balance issues, known meningioma TECHNIQUE: Multiplanar, multisequence images of the brain and brainstem is performed without and with IV contras t, utilizing 6 mL intravenous Gadavist . FINDINGS: Diffusion weighted images demonstrate no evidence of a recent infarct or other diffusion ab normality. There is no extra-axial fluid collection or significant interval change in white matter s ignal abnormality. The ventricular system and cisternal spaces are normal in size and appearance. T he brain volume is age appropriate. Extra-axial dural based mass shows a near stable appearance, homo genous enhancement consistent with meningioma along the left frontal inner table, stable local mass e ffect. Lesion currently measures roughly 17 x 13 x 17 mm, on previous exam measured approximately 16 x 17 x 13 mm. Midline structures demonstrate normal morphology. The craniocervical junction appears within normal limits. Post contrast images demonstrate no abnormal enhancement. The dural venous sinuses appear pa tent. The visualized sinuses are clear and the globes are intact. IMPRESSION: Meningioma shows essentially stable appearance, there may be minimal interval growth.
== END | disposition home or self-care (01) ==
LOC: RADMRIMAIN 09:13
PROVIDERS: ATTEND Psychiatry & Neurology Neurology
DX: R27.0 Ataxia, unspecified (principal)
CPT/HCPCS: 70553; A9585

== ENCOUNTER 2021-11-04 11:28 | Inpatient (IN) | payer MEDICARE ==
--- NOTE | 2021-11-04 13:31 | ED ---
General Adult HPI - General Chief complaint: Psychiatric Symptoms Stated complaint: AMS Time Seen by Provider: 11/04/21 13:00 Source: patient, family, RN notes reviewed, old records reviewed Mode of arrival: ambulatory Limitations: no limitations - History of Present Illness Initial comments: This is a 71-year-old female whose brings her to the emergency department because over the last 10-12 days she has become obsessed with the fact that she is a bad person and she never does anything for anyone else and she believes because of the Lord will not accept her. Patient occasionally according to the seems to understand that she is a good person but an hour or 2 later she's back talking about how she is a terrible person. Patient denies any new physical complaint. Patient denies headache patient denies numbness weakness. Patient denies any chest pain palpitations difficulty breathing shortness breath or patient's any abdominal pain patient denies nausea vomiting diarrhea. - Related Data Home Medications Medication Instructions Recorded Confirmed Gabapentin [Neurontin] 300 mg PO HS 11/04/21 11/04/21 Suvorexant [Belsomra] 20 mg PO HS 11/04/21 11/04/21 Allergies Allergy/AdvReac Type Severity Reaction Status Date / Time No Known Allergies Allergy Verified 10/30/21 09:34 Review of Systems ROS Statement: Those systems with pertinent positive or pertinent negative responses have been documented in the HPI. ROS Other: All systems not noted in ROS Statement are negative. Past Medical History Past Medical History: Neurologic Disorder, Respiratory Disorder Additional Past Medical History / Comment(s): autoimmune disorder. Believed to be chronic inflammatory demyelonizing polyneuropathy, meningioma, gait dysfunc tion. Respiratory distress/intubated JUN 2018 went to for face numbness for ivig treatment - remains 'numb' History of Any Multi-Drug Resistant Organisms: None Reported Past Surgical History: Section, Hysterectomy, Orthopedic Surgery Additional Past Surgical History / Comment(s): Open reduction and internal fi xation of the right ankle due to fracture, lumbar puncture. Endometroisis. Past Anesthesia/Blood Transfusion Reactions: No Reported Reaction Past Psychological History: No Psychological Hx Reported Smoking Status: Never smoker Past Alcohol Use History: None Reported Past Drug Use History: None Reported - Past Family History Mother Family Medical History: AFIB, Cancer, CVA/TIA Additional Family Medical History / Comment(s): Rectal Ca Father Family Medical History: Osteoarthritis (OA) Brother(s) Family Medical History: Diabetes Mellitus Sister(s) Family Medical History: Musculoskeletal Disorder Additional Family Medical History / Comment(s): lyme disease General Exam - General Exam Comments Initial Comments: GENERAL: Patient is well-developed and well-nourished. Patient is nontoxic and well-hydrated and is in no acute distress. ENT: Neck is soft and supple. No significant lymphadenopathy is noted. Oropharynx is clear. Moist mucous membranes. Neck has full range of motion without eliciting any pain. EYES: The sclera were anicteric and conjunctiva were pink and moist. Extraocular movements were intact and pupils were equal round and reactive to light. Eyelids were unremarkable. PULMONARY: Unlabored respirations. Good breath sounds bilaterally. No audible rales rhonchi or wheezing was noted. CARDIOVASCULAR: There is a regular rate and rhythm without any murmurs gallops or rubs. ABDOMEN: Soft and nontender with normal bowel sounds. SKIN: Skin is clear with no lesions or rashes and otherwise unremarkable. NEUROLOGIC: Patient is alert and oriented x3. Cranial nerves II through XII are grossly intact. Motor and sensory are also intact. Normal speech, volume and content. Symmetrical smile. MUSCULOSKELETAL: Normal extremities with adequate strength and full range of motion. LYMPHATICS: No significant lymphadenopathy is noted PSYCHIATRIC: Patient is insistent that she is a bad person and that lowered will not accept her. When you try to explain to her that she seems a good person she insists that she has usurped God's authority and therefore will not be accepted by him. Patient denies any suicidal ideations Limitations: no limitations Course Vital Signs 11/04/21 12:18 Temperature 97.7 F Pulse Rate 80 Respiratory 18 Rate Blood Pressure 153/77 O2 Sat by Pulse 98 Oximetry Medical Decision Making - Medical Decision Making EPS evaluated the patient and determined the patient needed to be admitted patient signed herself in. CAT scan showed no acute abnormality. - Lab Data Result diagrams: 11/04/21 13:45 11/04/21 13:45 Lab Results 11/04/21 11/04/21 11/04/21 Range/Units 13:45 13:45 13:45 WBC 5.5 (3.8-10.6) k/uL RBC 4.04 (3.80-5.40) m/uL Hgb 13.0 (11.4-16.0) gm/dL Hct 39.2 (34.0-46.0) % MCV 96.9 (80.0-100.0) fL MCH 32.2 (25.0-35.0) pg MCHC 33.2 (31.0-37.0) g/dL RDW 14.0 (11.5-15.5) % Plt Count 315 (150-450) k/uL MPV 9.2 Neutrophils % 73 % Lymphocytes % 18 % Monocytes % 5 % Eosinophils % 2 % Basophils % 1 % Neutrophils # 4.0 (1.3-7.7) k/uL Lymphocytes # 1.0 (1.0-4.8) k/uL Monocytes # 0.3 (0-1.0) k/uL Eosinophils # 0.1 (0-0.7) k/uL Basophils # 0.0 (0-0.2) k/uL Sodium 139 (137-145) mmol/L Potassium 4.0 (3.5-5.1) mmol/L Chloride 103 (98-107) mmol/L Carbon Dioxide 26 (22-30) mmol/L Anion Gap 10 mmol/L BUN 11 (7-17) mg/dL Creatinine 0.74 (0.52-1.04) mg/dL Est GFR (CKD-EPI)AfAm >90 (>60 ml/min/1.73 sqM) Est GFR (CKD-EPI)NonAf 84 (>60 ml/min/1.73 sqM) Glucose 104 H (74-99) mg/dL Calcium 9.5 (8.4-10.2) mg/dL Magnesium 2.0 (1.6-2.3) mg/dL Total Bilirubin 0.7 (0.2-1.3) mg/dL AST 35 (14-36) U/L ALT 25 (4-34) U/L Alkaline Phosphatase 86 (38-126) U/L Total Protein 9.6 H (6.3-8.2) g/dL Albumin 4.5 (3.5-5.0) g/dL Urine Color Colorless Urine Appearance Clear (Clear) Urine pH 6.5 (5.0-8.0) Ur Specific [place] 1.004 (1.001-1.035) Urine Protein Negative (Negative) Urine Glucose (UA) Negative (Negative) Urine Ketones Trace H (Negative) Urine Blood Moderate H (Negative) Urine Nitrite Negative (Negative) Urine Bilirubin Negative (Negative) Urine Urobilinogen <2.0 (<2.0) mg/dL Ur Leukocyte Esterase Small H (Negative) Urine RBC 2 (0-5) /hpf Urine WBC 1 (0-5) /hpf Ur Squamous Epith Cells <1 (0-4) /hpf Urine Opiates Screen Not Detected (NotDetected) Ur Oxycodone Screen Not Detected (NotDetected) Urine Methadone Screen Not Detected (NotDetected) Ur Propoxyphene Screen Not Detected (NotDetected) Ur Barbiturates Screen Not Detected (NotDetected) U Tricyclic Antidepress Not Detected (NotDetected) Ur Phencyclidine Scrn Not Detected (NotDetected) Ur Amphetamines Screen Not Detected (NotDetected) U Methamphetamines Scrn Not Detected (NotDetected) U Benzodiazepines Scrn Not Detected (NotDetected) Urine Cocaine Screen Not Detected (NotDetected) U Marijuana (THC) Screen Not Detected (NotDetected) Coronavirus (PCR) (Not Detectd) 11/04/21 Range/Units 17:07 WBC (3.8-10.6) k/uL RBC (3.80-5.40) m/uL Hgb (11.4-16.0) gm/dL Hct (34.0-46.0) % MCV (80.0-100.0) fL MCH (25.0-35.0) pg MCHC (31.0-37.0) g/dL RDW (11.5-15.5) % Plt Count (150-450) k/uL MPV Neutrophils % % Lymphocytes % % Monocytes % % Eosinophils % % Basophils % % Neutrophils # (1.3-7.7) k/uL Lymphocytes # (1.0-4.8) k/uL Monocytes # (0-1.0) k/uL Eosinophils # (0-0.7) k/uL Basophils # (0-0.2) k/uL Sodium (137-145) mmol/L Potassium (3.5-5.1) mmol/L Chloride (98-107) mmol/L Carbon Dioxide (22-30) mmol/L Anion Gap mmol/L BUN (7-17) mg/dL Creatinine (0.52-1.04) mg/dL Est GFR (CKD-EPI)AfAm (>60 ml/min/1.73 sqM) Est GFR (CKD-EPI)NonAf (>60 ml/min/1.73 sqM) Glucose (74-99) mg/dL Calcium (8.4-10.2) mg/dL Magnesium (1.6-2.3) mg/dL Total Bilirubin (0.2-1.3) mg/dL AST (14-36) U/L ALT (4-34) U/L Alkaline Phosphatase (38-126) U/L Total Protein (6.3-8.2) g/dL Albumin (3.5-5.0) g/dL Urine Color Urine Appearance (Clear) Urine pH (5.0-8.0) Ur Specific [place] (1.001-1.035) Urine Protein (Negative) Urine Glucose (UA) (Negative) Urine Ketones (Negative) Urine Blood (Negative) Urine Nitrite (Negative) Urine Bilirubin (Negative) Urine Urobilinogen (<2.0) mg/dL Ur Leukocyte Esterase (Negative) Urine RBC (0-5) /hpf Urine WBC (0-5) /hpf Ur Squamous Epith Cells (0-4) /hpf Urine Opiates Screen (NotDetected) Ur Oxycodone Screen (NotDetected) Urine Methadone Screen (NotDetected) Ur Propoxyphene Screen (NotDetected) Ur Barbiturates Screen (NotDetected) U Tricyclic Antidepress (NotDetected) Ur Phencyclidine Scrn (NotDetected) Ur Amphetamines Screen (NotDetected) U Methamphetamines Scrn (NotDetected) U Benzodiazepines Scrn (NotDetected) Urine Cocaine Screen (NotDetected) U Marijuana (THC) Screen (NotDetected) Coronavirus (PCR) Not Detected (Not Detectd) Disposition Clinical Impression: Depression, Psychosis Disposition: ADMITTED IP TO THIS [facility] Referrals: Stephanie Orourke MD [Primary Care Provider] - 1-2 days Time of Disposition: 17:41
[2021-11-04 14:02] LABS: Basophils % (A) 1 %; Eosinophils # (A) 0.1 k/uL (0-0.7); Eosinophils % (A) 2 %; HCT 39.2 % (34.0-46.0); Lymphocytes % (A) 18 %; MCH 32.2 pg (25.0-35.0); MCHC 33.2 g/dL (31.0-37.0); MCV 96.9 fL (80.0-100.0); Mean Platelet Volume 9.2; Monocytes # (A) 0.3 k/uL (0-1.0); Monocytes % (A) 5 %; Neutrophils % (A) 73 %; Platelet Count 315 k/uL (150-450); RBC 4.04 m/uL (3.80-5.40); WBC 5.5 k/uL (3.8-10.6)
--- NOTE | 2021-11-04 14:08 | CT ---
EXAMINATION TYPE: CT brain wo con DATE OF EXAM: 11/04/2021 COMPARISON: CT brain 06/14/2014 HISTORY: Anxiety and Confusion, altered mental status CT DLP: 1102.9 mGycm Automated exposure control for dose reduction was used. Helical imaging through the brain. FINDINGS: There are cerebral vascular calcifications present. There is no hemorrhage or hydrocephalus. Magana-whi te matter differentiation is maintained. Calvarium is intact. Paranasal sinuses and mastoid air cells as visualized are normal. The orbits are symmetric. IMPRESSION: NO ACUTE ABNORMALITY IS EVIDENT.
[2021-11-04 14:14] LABS: Appearance,Urine Clear (Clear); Bilirubin,Urine Negative (Negative); Blood,Urine Moderate (Negative); Color,Urine Colorless; Glucose,Urine (UA) Negative (Negative); Ketones,Urine Trace (Negative); Leukocyte Esterase,Urine Small (Negative); Nitrite,Urine Negative (Negative); PH, Urine 6.5 (5.0-8.0); Protein,Urine Negative (Negative); RBC,Urine 2 /hpf (0-5); Specific Gravity,Urine 1.004 (1.001-1.035); Squamous Epithelial Cell,Urine <1 /hpf (0-4); Urobilinogen,Urine <2.0 mg/dL (<2.0); WBC,Urine 1 /hpf (0-5)
[2021-11-04 14:16] LABS: ALT 25 U/L (4-34); AST 35 U/L (14-36); African American GFR (CKD) >90 (>60 ml/min/1.73 sqM); Albumin 4.5 g/dL (3.5-5.0); Alkaline Phosphatase 86 U/L (38-126); Anion Gap 10 mmol/L; Blood Urea Nitrogen 11 mg/dL (7-17); Calcium 9.5 mg/dL (8.4-10.2); Carbon Dioxide 26 mmol/L (22-30); Chloride 103 mmol/L (98-107); Glucose 104 mg/dL (74-99); Non-African American GFR(CKD) 84 (>60 ml/min/1.73 sqM); Sodium 139 mmol/L (137-145); Total Bilirubin 0.7 mg/dL (0.2-1.3); Total Protein 9.6 g/dL (6.3-8.2)
[2021-11-04 14:32] LABS: Amphetamine Screen,Urine Not Detected (NotDetected); Barbiturate Screen,Urine Not Detected (NotDetected); Benzodiazepines Screen,Urine Not Detected (NotDetected); Cocaine Screen,Urine Not Detected (NotDetected); Methadone Screen, Urine Not Detected (NotDetected); Opiate Screen,Urine Not Detected (NotDetected); Oxycodone Screen, Urine Not Detected (NotDetected); Phencyclidine Screen,Urine Not Detected (NotDetected); Tricyclic Antidepressant,Urine Not Detected (NotDetected); Urn Cannabinoid Scrn Not Detected (NotDetected)
[2021-11-04] MEDS ORDERED: LORazepam 1 MG TAB PO PRN (18:18)
[2021-11-04] MEDS ORDERED: MAGNESIUM HYDROXIDE 2,400 MG/10 ML CUP PO PRN (18:18)
[2021-11-04] MEDS ORDERED: MAG HYDROX/AL HYDROX/SIMETH 30 ML CUP PO PRN (18:18)
[2021-11-04] MEDS ORDERED: ACETAMINOPHEN TAB 325 MG TAB PO PRN (18:18)
[2021-11-04] MEDS ORDERED: LORazepam 2 MG/ML INJ IM PRN (18:19)
[2021-11-04] MEDS: GABAPENTIN 300 MG CAP PO SCH (21:15)
[2021-11-04] MEDS: NON FORMULARY DRUG (Suvorexant [Belsomra] 20 MG Tablet) PO SCH (21:16)
[2021-11-05] MEDS: VORTIOXETINE HYDROBROMIDE 10 MG TABLET PO SCH (09:56)
--- NOTE | 2021-11-05 13:26 | P.HP ---
Psychiatric H&P - . H&P Date: 11/05/21 History & Physical: IDENTIFYING DATA: The patient is a 71-year-old female admitted to the psychiatric unit voluntarily. HISTORY OF PRESENT ILLNESS: She came to the hospital at the behest of her family who were concerned about her emotional state and well-being. She told the EPS nurse that she is struggling with worsening anxiety, feelings of worthlessness, depression and thoughts of suicide. Her told the EPS nurse that he became concerned and when she expressed thoughts of suicide. The patient described increasing feelings depression that has worsened over the last 2 weeks. During this time she has withdrawn from friends and family. She described overwhelming feelings of worthlessness and hopelessness. She feels that she is a failure and perseverated on rastafarian themes that she has failed her family, her moravian and God. She described impairments with sleep, appetite, energy, concentration, hedonia and thoughts of suicide. She denied suicide intent or plan. She has a history of chronic inflammatory demyelinating polyneuropathy that has contributed to her decreasing dependence and feelings of hopelessness. At home, she walks with the assistance of a walker or with the help of friends and family. She denied experiencing periods of elevated mood or sustained irritability suggestive of daisy or hypomania. With the increasing depression she described increasing anxiety but denied episodes of increased anxiety consistent with panic attacks. She has rastafarian ruminations but did not describe clear obsessions or compulsive behaviors. She denied use of alcohol or drugs. She denied experiencing auditory, visual or olfactory hallucinations, ideas reference, thought insertion, thought broadcasting or thought control. PAST PSYCHIATRIC HISTORY: She described one prior episode of severe depression "many years ago" which she did not receive mental health treatment. She is never met with a mental health professional. No prior psychiatric hospitalizations. She denied that a family physician has prescribed antidepressant or psychotropic medications. PAST MEDICAL HISTORY: She has a history of CIPD, ataxia, dyspnea and generalized muscle weakness. Her current medications include gabapentin for peripheral neuropathy and Belsomra for sleep ALLERGIES: NO KNOWN DRUG ALLERGIES SUBSTANCE USE HISTORY: Denied FAMILY PSYCHIATRIC/SUBSTANCE USE HISTORY: Denied LEGAL HISTORY: She has no history of legal problems SOCIAL HISTORY: She was born and raised in and intact family. She denied a history of physical, emotional or sexual abuse. She graduated from high school. She did for 47 years to her current . They have 2 adult children and 1 grandchild. Her is retired. MENTAL STATUS EXAM: She presented as a thin and frail-appearing 71-year-old woman who appeared younger than her stated age. She made eye contact and attended to interview. She walked with the aid of a walker. Her gait was slow and slightly unsteady. She had a sad facial expression. She was alert and oriented to person, place and time. She had marked psychomotor retardation. Her speech was spontaneous with decreased rate and rhythm. She had no articulation difficulties. Her affect was depressed and not reactive. She denied current suicidal ideation or wishes. She denied homicidal ideation. She expressed profound feelings of hopelessness, helplessness or worthlessness. She ruminated over her perceived failures and disappointments. She did not express phobias, ideas reference, paranoid ideation, magical ideation or delusions. Her thinking was abstract but her associations were coherent, logical and goal directed. She denied hallucinations and did not appear to be responding to internal stimuli. Global impression of intellect is average. She is aware of illness and need for treatment. STRENGTHS: Supportive family, stable long-term interpersonal relationships, stable housing, stable income WEAKNESSES: Chronic medical problems IMPRESSION: She is a 71-year-old female who is physically impaired from a chronic inflammatory demyelinating polyneuropathy. She presents psychiatric unit voluntarily with signs and symptoms of a major depressive disorder complicated by functional impairment, hopelessness and suicidal ideation. She has no history of psychiatric treatment. She has no history of substance use problems. There is no evidence past history suggestive of a bipolar illness or psychotic disorder. She experiencing increasing anxiety, commitment with worsening of her depressive symptoms. She should be treated inpatient basis with combination of psychopharmacology and multimodal therapy. 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 Seems precautions. Consult medicine for initial physical exam and medical history. link trainer maintenance worker completed a psychosocial assessment coordinate discharge and aftercare. Continue gabapentin 300 mg at bedtime and Belsomra 20 mg at bedtime for sleep (this medication is nonformulary and her family will need to provide her outpatient prescription). Begin trintellix 20 milligrams daily for treatment of depression and titrate dose according to clinical response and tolerance. Encourage participation in therapeutic groups and activities. Evaluate clinical status response to treatment daily basis. Allergies Allergy/AdvReac Type Severity Reaction Status Date / Time No Known Allergies Allergy Verified 10/30/21 09:34 Vital Signs Temp 98.5 F 11/05/21 06:57 Pulse 102 H 11/05/21 06:57 Resp 18 11/04/21 12:18 BP 145/70 11/05/21 06:57 Pulse Ox 94 L 11/05/21 06:57 FiO2 Intake & Output 11/04/21 11/05/21 11/05/21 18:59 06:59 18:59 Weight 56.699 kg Laboratory Last Values WBC 5.5 k/uL (3.8-10.6) 11/04/21 13:45 RBC 4.04 m/uL (3.80-5.40) 11/04/21 13:45 Hgb 13.0 gm/dL (11.4-16.0) 11/04/21 13:45 Hct 39.2 % (34.0-46.0) 11/04/21 13:45 MCV 96.9 fL (80.0-100.0) 11/04/21 13:45 MCH 32.2 pg (25.0-35.0) 11/04/21 13:45 MCHC 33.2 g/dL (31.0-37.0) 11/04/21 13:45 RDW 14.0 % (11.5-15.5) 11/04/21 13:45 Plt Count 315 k/uL (150-450) 11/04/21 13:45 MPV 9.2 11/04/21 13:45 Neutrophils % 73 % 11/04/21 13:45 Lymphocytes % 18 % 11/04/21 13:45 Monocytes % 5 % 11/04/21 13:45 Eosinophils % 2 % 11/04/21 13:45 Basophils % 1 % 11/04/21 13:45 Neutrophils # 4.0 k/uL (1.3-7.7) 11/04/21 13:45 Lymphocytes # 1.0 k/uL (1.0-4.8) 11/04/21 13:45 Monocytes # 0.3 k/uL (0-1.0) 11/04/21 13:45 Eosinophils # 0.1 k/uL (0-0.7) 11/04/21 13:45 Basophils # 0.0 k/uL (0-0.2) 11/04/21 13:45 Sodium 139 mmol/L (137-145) 11/04/21 13:45 Potassium 4.0 mmol/L (3.5-5.1) 11/04/21 13:45 Chloride 103 mmol/L (98-107) 11/04/21 13:45 Carbon Dioxide 26 mmol/L (22-30) 11/04/21 13:45 Anion Gap 10 mmol/L 11/04/21 13:45 BUN 11 mg/dL (7-17) 11/04/21 13:45 Creatinine 0.74 mg/dL (0.52-1.04) 11/04/21 13:45 Est GFR (CKD-EPI)AfAm >90 (>60 ml/min/1.73 sqM) 11/04/21 13:45 Est GFR (CKD-EPI)NonAf 84 (>60 ml/min/1.73 sqM) 11/04/21 13:45 Glucose 104 mg/dL (74-99) H 11/04/21 13:[address] Glu mg/dL 118 11/04/21 13:45 Hemoglobin A1c 5.7 % (0.0-6.0) 11/04/21 13:45 Calcium 9.5 mg/dL (8.4-10.2) 11/04/21 13:45 Magnesium 2.0 mg/dL (1.6-2.3) 11/04/21 13:45 Total Bilirubin 0.7 mg/dL (0.2-1.3) 11/04/21 13:45 AST 35 U/L (14-36) 11/04/21 13:45 ALT 25 U/L (4-34) 11/04/21 13:45 Alkaline Phosphatase 86 U/L (38-126) 11/04/21 13:45 Total Protein 9.6 g/dL (6.3-8.2) H 11/04/21 13:45 Albumin 4.5 g/dL (3.5-5.0) 11/04/21 13:45 TSH 1.980 mIU/L (0.465-4.680) 11/04/21 13:45 Urine Color Colorless 11/04/21 13:45 Urine Appearance Clear (Clear) 11/04/21 13:45 Urine pH 6.5 (5.0-8.0) 11/04/21 13:45 Ur Specific [place] 1.004 (1.001-1.035) 11/04/21 13:45 Urine Protein Negative (Negative) 11/04/21 13:45 Urine Glucose (UA) Negative (Negative) 11/04/21 13:45 Urine Ketones Trace (Negative) H 11/04/21 13:45 Urine Blood Moderate (Negative) H 11/04/21 13:45 Urine Nitrite Negative (Negative) 11/04/21 13:45 Urine Bilirubin Negative (Negative) 11/04/21 13:45 Urine Urobilinogen <2.0 mg/dL (<2.0) 11/04/21 13:45 Ur Leukocyte Esterase Small (Negative) H 11/04/21 13:45 Urine RBC 2 /hpf (0-5) 11/04/21 13:45 Urine WBC 1 /hpf (0-5) 11/04/21 13:45 Ur Squamous Epith Cells <1 /hpf (0-4) 11/04/21 13:45 Urine Opiates Screen Not Detected (NotDetected) 11/04/21 13:45 Ur Oxycodone Screen Not Detected (NotDetected) 11/04/21 13:45 Urine Methadone Screen Not Detected (NotDetected) 11/04/21 13:45 Ur Propoxyphene Screen Not Detected (NotDetected) 11/04/21 13:45 Ur Barbiturates Screen Not Detected (NotDetected) 11/04/21 13:45 U Tricyclic Antidepress Not Detected (NotDetected) 11/04/21 13:45 Ur Phencyclidine Scrn Not Detected (NotDetected) 11/04/21 13:45 Ur Amphetamines Screen Not Detected (NotDetected) 11/04/21 13:45 U Methamphetamines Scrn Not Detected (NotDetected) 11/04/21 13:45 U Benzodiazepines Scrn Not Detected (NotDetected) 11/04/21 13:45 Urine Cocaine Screen Not Detected (NotDetected) 11/04/21 13:45 U Marijuana (THC) Screen Not Detected (NotDetected) 11/04/21 13:45 Coronavirus (PCR) Not Detected (Not Detectd) 11/04/21 17:07 11/05/21 13:05
--- NOTE | 2021-11-05 15:23 | P.CONS ---
History of Present Illness - Reason for Consult Consult date: 11/05/21 - History of Present Illness Candida Handy, is a 71-year-old female admitted to the psychiatry unit, medical consultation was requested for management while hospitalized. Patient was brought into emergency room by her because over the last 10-12 days she became obsessed with the idea that she is a bad person and that the Lord would not accept patient was having severe anxiety and was not able to sleep, dominique middleton was seen about a week ago by Dr. Orourke who gave her Belsomra to help her sleep, patient was able to sleep a few hours a night but was waking up with anxiety, her condition continued to worsen and her decided to bring her to emergency room. Patient has a known past medical history of peripheral neuropathy, she was diagnosed as having chronic inflammatory demyelinating polyneuropathy (CIPD), she was also diagnosed with having 2 meningioma, she states that she was seen at the [facility] and at the [facility], and currently she is following with Dr. Alamo, she states that she takes gabapentin which provide some relief of her symptoms, she stated that she also has history of endometriosis, otherwise patient denies any other past medical history there is no history of cardiac disease lung disease or kidney disease. Her past surgical history significant for , hysterectomy, open reduction and internal fixation of the right ankle after a fracture. Patient states that she never smoked, she drinks alcohol rarely, she denies any use of drugs. On review of systems patient is alert and oriented 3, in no apparent distress, she complains of anxiety and difficulty sleeping, there is no fever or chills no headache or dizziness no chest pain no shortness of breath no cough no nausea or vomiting no abdominal pain no diarrhea no blood in the stools, she had constipation over the last few days, no burning with urination no frequency or urgency and no hematuria, no weakness or numbness in any of the extremities, no change in vision speech or gait, patient has deformity in both feet, she has difficulty with ambulation and uses a walker, she can only walk small distances that she started having pain in her feet and ankles, otherwise she denies any complaints. Past Medical History Past Medical History: Neurologic Disorder, Respiratory Disorder Additional Past Medical History / Comment(s): autoimmune disorder. Believed to be chronic inflammatory demyelonizing polyneuropathy, meningioma, gait dysfunction. Respiratory distress/intubated JUN 2018 went to ec for face numbness for ivig treatment - remains 'numb' History of Any Multi-Drug Resistant Organisms: None Reported Past Surgical History: Section, Hysterectomy, Orthopedic Surgery Additional Past Surgical History / Comment(s): Open reduction and internal fixation of the right ankle due to fracture, lumbar puncture. Endometroisis. Past Anesthesia/Blood Transfusion Reactions: No Reported Reaction Past Psychological History: No Psychological Hx Reported Smoking Status: Never smoker Past Alcohol Use History: None Reported Past Drug Use History: None Reported - Past Family History Mother Family Medical History: AFIB, Cancer, CVA/TIA Additional Family Medical History / Comment(s): Rectal Ca Father Family Medical History: Osteoarthritis (OA) Brother(s) Family Medical History: Diabetes Mellitus Sister(s) Family Medical History: Musculoskeletal Disorder Additional Family Medical History / Comment(s): lyme disease Medications and Allergies Home Medications Medication Instructions Recorded Confirmed Type Gabapentin [Neurontin] 300 mg PO HS 11/04/21 11/04/21 History Suvorexant [Belsomra] 20 mg PO HS 11/04/21 11/04/21 History Allergies Allergy/AdvReac Type Severity Reaction Status Date / Time No Known Allergies Allergy Verified 10/30/21 09:34 Physical Exam Vitals: Vital Signs Temp Pulse Pulse Resp BP BP Pulse Ox 11/05/21 06:57 98.5 F 102 H 145/70 94 L 11/04/21 12:18 97.7 F 80 18 153/77 98 In general patient is alert and oriented x 3 in no distress HEENT head normocephalic and atraumatic Neck is supple no JVD no goiter no lymphadenopathy no carotid bruit Chest examination is clear to auscultation no crackles no wheezing Cardiac exam reveals regular heart sounds S1 and S2 no gallops no murmurs Abdomen is soft nontender no organomegaly with normal bowel sounds Extremity exam reveals no edema no cyanosis or clubbing, there is foot deformity with difficulty walking, patient is using a walker Neurological examination reveals no gross focal deficits Results CBC & Chem 7: 11/04/21 13:45 11/04/21 13:45 Labs: Abnormal Lab Results - Last 24 Hours (Table) 11/04/21 11/04/21 Range/Units 13:45 13:45 Glucose 104 H (74-99) mg/dL Total Protein 9.6 H (6.3-8.2) g/dL Urine Ketones Trace H (Negative) Urine Blood Moderate H (Negative) Ur Leukocyte Esterase Small H (Negative) Assessment and Plan Plan: Depression with anxiety disorder, management per primary psychiatry team Sleep disturbance Peripheral neuropathy, diagnosed as chronic inflammatory demyelinating polyneuropathy, maintained on gabapentin History of meningioma History of endometriosis status post hysterectomy Remote history of right ankle fracture with surgery At this time patient is medically stable Home medications reviewed and reordered Laboratory data reviewed Will follow with you as needed for any medical management needs.
[2021-11-05 18:08] LABS: Chol/HDL Ratio 2.77 Ratio; LDL Cholesterol,Calculated 93.3 mg/dL (0.0-131.0); VLDL Calculation 12.16 mg/dL (5.00-40.00)
[2021-11-05] MEDS: GABAPENTIN 300 MG CAP PO SCH (21:18)
[2021-11-05] MEDS: NON FORMULARY DRUG (Suvorexant [Belsomra] 20 MG Tablet) PO SCH (21:18)
[2021-11-06] MEDS: VORTIOXETINE HYDROBROMIDE 10 MG TABLET PO SCH (09:03)
[2021-11-06] MEDS: NON FORMULARY DRUG (Suvorexant [Belsomra] 20 MG Tablet) PO SCH (09:13)
--- NOTE | 2021-11-06 14:42 | P.PN ---
Progress Note - Text Progress Note Date: 11/06/21 Clinical Problems: Major depressive disorder with anxious distress, CIPD Interim history: I reviewed the medical record, interviewed the patient and discussed the treatment and treatment plan with the treatment team. She was anxious throughout the interview and perseverated on depressive themes. She believes that she is a failure and that her marriage is a sham. She feels overwhelming guilt for misleading her friends and family. She believes that she is an unrepentant sinner who should become damned for her thoughts and actions. She dismissed evidence that was contrary to her cognitive distortions. Nursing spoke with her who reported that she experienced adverse effects to Belsomra. She slept 7 hours last night. Medical consult appreciated. Mental status exam: She presented as a thin and frail-appearing elderly woman who was pleasant on approach. She made eye contact and appeared to attend to the interview. She had a sad facial expression. She walks slowly with the aid of a walker. Gait was unsteady. Her affect was depressed, anxious and not reactive. She did not express suicidal ideation or wishes. She expresses feelings of hopelessness, helplessness or worthlessness. She ruminated over negative cognitions. She did not express such psychotic symptoms as ideas reference, paranoid ideation or delusions. Her thinking was concrete. Associations were coherent, logical and goal directed. She denied hallucinations and did not appear to be responding to internal stimuli. Assessment: She remains severely depressed and unchanged from admission. Plan: Continue inpatient treatment. Safety precautions. Continue to walker on the unit. Discontinue Belsomra. Continue Trintellix 10 mg daily and titrated according concrete response and tolerance. Begin Abilify 2 mg at bedtime for augmentation of the antidepressant. She may be a candidate for referral for ECT. Encourage continued participation in therapeutic groups and activities. Evaluate clinical status response to treatment daily basis.
[2021-11-06] MEDS ORDERED: ARIPiprazole 2 MG TAB PO SCH (21:00)
[2021-11-06] MEDS: GABAPENTIN 300 MG CAP PO SCH (21:34)
[2021-11-07] MEDS: VORTIOXETINE HYDROBROMIDE 10 MG TABLET PO SCH (09:36)
[2021-11-07] MEDS ORDERED: ARIPiprazole 5 MG TAB PO SCH (10:15)
--- NOTE | 2021-11-07 10:24 | P.PN ---
Progress Note - Text Progress Note Date: 11/07/21 Interval History: Patient was seen sitting in her room today talking her self and was directable and agreeable to speak with selling underwriter in the office. Patient claims she is feeling very depressed and severely anxious well-being on the unit. She was fairly religiously preoccupied during conversation. She had loose associations and some bizarre content. She states that she is hearing voices talking to her and was fairly focused on God. She appears to have a depressed affect. She claims that her sleep is fair at this time. She appeared to be fairly hesitant about her medications and asked several questions about them which were answered. At this time patient denies any suicidal or homical ideations, intent or plan. Patient denies any visual hallucinations and denies any paranoia or delusions. Patient denies any side effects from the medications and has been compliant with meds. Mental Status Exam: General Appearance: Patient appears to be using a walker, stated age is alert, directable, and attempts to be cooperative. Hesitant. Behavior: Patient is calmly seated without any agitated behavior. Hesitant. Speech: Patient's speech is fluent and nonpressured. Rambles at times. Mood/Affect: Mood is depressed and anxious, affect is congruent and constricted. Suicidality/Homicidality: Patient denies having any suicidal or homicidal ideation intent or plan. Perceptions: Patient denies any visual hallucinations and admits to auditory hallucinations. Though content/process: Patient was fairly religiously preoccupied. Some loose associations and bizarre content. Focused on her depression. Memory and concentration: AOX3, grossly intact for the purposes of this session Judgment and insight: Improving mildly Assessment Depressive disorder unspecified, rule out major depressive disorder with psychotic features versus bipolar depression Plan: -Patient continues to meet criteria for inpatient psychiatric admission for symptom stabilization and safety. Patient has signed adult voluntary form and medication consent and was placed in patient's chart. -Medications: Change medications to Prozac 20 milligrams daily for mood/anxiety, Zyprexa 2.5 mg daily at bedtime with 1 dose now as well. -When necessary Ativan and Haldol for agitation/aggression. -NRT - not needed as patient does not smoke -SW on board for discharge planning. Encouraged the patient to participate in milieu.
[2021-11-07] MEDS ORDERED: OLANZapine 2.5 MG TAB PO ONE (10:30)
[2021-11-07] MEDS ORDERED: OLANZapine 7.5 MG TAB PO ONE (10:30)
[2021-11-07] MEDS: FLUoxetine HCL 20 MG CAP PO SCH (11:07)
[2021-11-07] MEDS: OLANZapine 2.5 MG TAB PO SCH (20:58)
[2021-11-07] MEDS: GABAPENTIN 300 MG CAP PO SCH (20:58)
[2021-11-07] MEDS ORDERED: MELATONIN 3 MG TABLET PO SCH (21:00)
[2021-11-08] MEDS: FLUoxetine HCL 20 MG CAP PO SCH (09:45)
--- NOTE | 2021-11-08 11:54 | P.PN ---
Progress Note - Text Progress Note Date: 11/08/21 Interval History: Patient was seen sitting in her room today talking her self and was directable and agreeable to speak with jingle writer in the office. Patient claims that she continues to feel empty at this time. She states that she beelives that her family "hates her" and also states that she feels "dumb". She appears to be more goal oriented in her thoughts. Less religously focused today. She is attempting to go to groups today. She was very thankful for the staff and services on the unit. At this time patient denies any suicidal or homical ideations, intent or plan. Patient denies any visual hallucinations and denies any paranoia. Patient denies any side effects from the medications and has been compliant with meds. Mental Status Exam: General Appearance: Patient appears to be using a walker, stated age is alert, directable, and attempts to be cooperative. Hesitant. Behavior: Patient is calmly seated without any agitated behavior. Speech: Patient's speech is fluent and nonpressured. Rambles at times. Mood/Affect: Mood is depressed and "empty", affect is congruent and constricted. Suicidality/Homicidality: Patient denies having any suicidal or homicidal ideation intent or plan. Perceptions: Patient denies any visual hallucinations and admits to auditory hallucinations. Though content/process: Patient was fairly religiously preoccupied, improving. more goal oriented. Focused on her depression and symptoms. Memory and concentration: AOX3, grossly intact for the purposes of this session Judgment and insight: Improving mildly Assessment Depressive disorder unspecified, rule out major depressive disorder with psychotic features versus bipolar depression vs depressive disorder secondary to general medical/nerological condition Plan: -Patient continues to meet criteria for inpatient psychiatric admission for symptom stabilization and safety. Patient has signed adult voluntary form and medication consent and was placed in patient's chart. -Medications: Change medications to Prozac 30 mg qhs for mood/anxiety, continue with zyprexa 2.5 mg qhs for mood stabilization/insomnia -When necessary Ativan and Haldol for agitation/aggression. -NRT - not needed as patient does not smoke -SW on board for discharge planning. Encouraged the patient to participate in milieu. likely discharge early next week. will speak with over the phone today as requested, Arun [phone]
[2021-11-08] MEDS: FLUoxetine HCL 10 MG CAP PO SCH (21:51)
[2021-11-08] MEDS: OLANZapine 2.5 MG TAB PO SCH (21:51)
[2021-11-08] MEDS: GABAPENTIN 300 MG CAP PO SCH (21:51)
[2021-11-08 21:56] VITALS: RESP 20
[2021-11-09] MEDS ORDERED: FLUoxetine HCL 20 MG CAP PO SCH (09:00)
--- NOTE | 2021-11-09 16:30 | P.PN ---
Progress Note - Text Progress Note Date: 11/09/21 Subjective: Patient was seen today as a cross coverage for Dr. Montez. The patient was evaluated, chart reviewed, case discussed with the treatment team. Patient reports good sleep last night, and appetite was reported as " poo4". Patient has not been going to groups and other unit activities. The patient is compliant with her medications and denies any adverse reactions. Patient reported better sleep last night with taking her medications but she didn't feel desire to eat today. Patient was talking negative about herself and she presented confused. She reports her mood is "on the negative side" and she stated feeling guilty "feeling myself selfish person". She reported feeling burden on other people. Patient seems internally preoccupied and when asked about any A/V hallucinations, she reported "the believers of God should hate the devil" then patient reports that she feels that she is the devil but couldn't explain that besides that she was deceitful. Objective: Vitals has been reviewed. Mental status examination; General Appearance: Patient appears ill, unable to walk and on wheelchair, stated age, to some degree confused. Behavior: Patient is calmly seated without any agitated behavior. Speech: Patient's speech is fluent and non pressured. Rambles at times. Mood/Affect: Mood is depressed Affect: Flat, indifferent Suicidality/Homicidality: Patient denies having any suicidal or homicidal ideation intent or plan. Perceptions: Patient didn't give a clear answer if regarding auditory hallucinations. Though content/process: Patient was fairly religiously preoccupied, tangential. Focused on her depression and symptoms and feeling guilt. She described herself as "Devil" Memory and concentration: AOX3, grossly intact for the purposes of this session. Not fully oriented to time "couldn't give the exact date" Judgment and insight: Limited Assessment: Depressive disorder unspecified, rule out major depressive disorder with psychotic features versus bipolar depression vs depressive disorder secondary to general medical/nerological condition Plan: Continue inpatient level of care due to needs for further stabilization of her depression and psychotic symptoms. Precautions: Continue 15 minutes check for safety. Consider medical consultation if any acute medical issues arise. Provide the patient individual, group therapy, substance use disorder counseling to give better insight and learn coping skills. Medications: Prozac 30 mg qhs for mood/anxiety Increase zyprexa 5 mg qhs for mood stabilization/insomnia and psychotic symptoms When necessary Ativan and Haldol for agitation/aggression. Continue non-psychiatric medications for medical conditions as recommended by the medical team. Discharge patient to OUTPATIENT services upon a stabilization
[2021-11-09] MEDS: GABAPENTIN 300 MG CAP PO SCH (21:15)
[2021-11-09] MEDS: FLUoxetine HCL 10 MG CAP PO SCH (21:16)
[2021-11-09] MEDS: OLANZapine 5 MG TAB PO SCH (21:16)
--- NOTE | 2021-11-10 14:52 | P.PN ---
Progress Note - Text Progress Note Date: 11/10/21 Subjective: Patient was seen today as a cross coverage for Dr. Montez. The patient was evaluated, chart reviewed, case discussed with the treatment team. Patient presented with delayed response and slow speech. She reported feeling anxious but requested to go back home. Patient still feeling restless and anxious. She reported better sleep last night and her appetite is "relatively better". She ate breakfast and lunch today. She denies any SI today. She denies having any auditory hallucinations today. She was not preoccupied with negative thoughts about herself as yesterday and today she feels anxious and restless because she wants to go home. Pt. attends groups and other unit activities and continued to take her medications as prescribed. Objective: Vitals has been reviewed. Mental status examination; General Appearance: Patient appears ill, unable to walk and on wheelchair, stated age, to some degree confused. Behavior: Patient is calmly seated without any agitated behavior. Speech: Patient's speech is fluent and non pressured. Rambles at times. Mood/Affect: Mood is depressed Affect: Flat, indifferent Suicidal ideation/Homicidal ideation: Patient denies having any suicidal or homicidal ideation intent or plan. Perceptions: Patient didn't give a clear answer if regarding auditory hallucinations. Though content/process: Patient was fairly religiously preoccupied, tangential. Focused on her depression and symptoms and feeling guilt. She described herself as "Devil" Memory and concentration: AOX3, grossly intact for the purposes of this session. Not fully oriented to time "couldn't give the exact date" Judgment and insight: Limited Assessment: Depressive disorder unspecified, rule out major depressive disorder with psychotic features versus bipolar depression vs depressive disorder secondary to general medical/nerological condition Plan: Continue inpatient level of care due to needs for further stabilization of her depression and psychotic symptoms. Precautions: Continue 15 minutes check for safety. Consider medical consultation if any acute medical issues arise. Provide the patient individual, group therapy, substance use disorder counseling to give better insight and learn coping skills. Medications: Prozac 30 mg qhs for mood/anxiety zyprexa 5 mg qhs for mood stabilization/insomnia and psychotic symptoms. Dose increased 10/09 When necessary Ativan and Haldol for agitation/aggression. Continue non-psychiatric medications for medical conditions as recommended by the medical team. Discharge patient to OUTPATIENT services upon a stabilization
[2021-11-10] MEDS: FLUoxetine HCL 10 MG CAP PO SCH (21:45)
[2021-11-10] MEDS: GABAPENTIN 300 MG CAP PO SCH (21:46)
[2021-11-10] MEDS: OLANZapine 5 MG TAB PO SCH (21:46)
[2021-11-11] MEDS ORDERED: FLUoxetine HCL 10 MG CAP PO STA (13:06)
--- NOTE | 2021-11-11 13:07 | P.PN ---
Progress Note - Text Progress Note Date: 11/11/21 Interval History: Patient was seen sitting in her room today and agreeable to speak to jingle writer. Patient appears to be calmer and her affect and was more appropriate. She was less religiously preoccupied today and continues to feel somewhat depressed however states that she is mildly improving. She claims that she still feels "dumb" and does not know how much the medications are helping her. She continues to speak about her neurological condition and her infusion that she needs on Thursday. She was focused on discharge today. She claims that she is going to some groups and will try to go to more today. She was more directable today. At this time patient denies any suicidal or homical ideations, intent or plan. Patient denies any visual hallucinations and denies any paranoia. Patient denies any side effects from the medications and has been compliant with meds. Mental Status Exam: General Appearance: Patient appears to be using a walker, stated age is alert, directable, and attempts to be cooperative. Hesitant. Behavior: Patient is calmly seated without any agitated behavior. More directable today. Speech: Patient's speech is fluent and nonpressured. Mood/Affect: Mood is improving mildly, affect is congruent and constricted. Suicidality/Homicidality: Patient denies having any suicidal or homicidal ideation intent or plan. Perceptions: Patient denies any visual hallucinations and admits to auditory hallucinations. Though content/process: Patient was fairly religiously preoccupied, improving. more goal oriented. Focused on her neurological symptoms. And also focused on discharge. Memory and concentration: AOX3, grossly intact for the purposes of this session Judgment and insight: Improving mildly Assessment Depressive disorder unspecified, rule out major depressive disorder with psychotic features versus bipolar depression vs depressive disorder secondary to general medical/nerological condition Plan: -Patient continues to meet criteria for inpatient psychiatric admission for symptom stabilization and safety. Patient has signed adult voluntary form and medication consent and was placed in patient's chart. -Medications: increase Prozac 40 mg qhs for mood/anxiety, continue with zyprexa 5 mg qhs for mood stabilization/insomnia -When necessary Ativan and Haldol for agitation/aggression. -NRT - not needed as patient does not smoke -SW on board for discharge planning. Encouraged the patient to participate in milieu. likely discharge tomorrow back home if patient continues to improve.
[2021-11-11] MEDS: GABAPENTIN 300 MG CAP PO SCH (20:40)
[2021-11-11] MEDS: OLANZapine 5 MG TAB PO SCH (20:40)
[2021-11-12 07:06] VITALS: BP 132/76; PULSE 105; TEMP 97.6
[2021-11-12] MEDS ORDERED: FLUoxetine HCL 20 MG CAP PO SCH (09:00)
--- NOTE | 2021-11-12 09:56 | P.DS ---
Providers Date of admission: 11/04/21 17:45 Expected date of discharge: 11/12/21 Attending physician: Virgil Stephenson MD Consults: 11/04/21 18:18 Consult Physician Routine Consulting Provider: Edel Frey Consult Reason/Comments: H&P and medical Do you want consulting provider notified?: Yes Primary care physician: Stephanie Orourke - Discharge Diagnosis(es) (1) Depressive disorder Current Visit: Yes Status: Acute Priority: High Hospital Course: Admission HPI: Admission note was completed by automobile service writer ""The patient is a 71-year-old female admitted to the psychiatric unit voluntarily. She came to the hospital at the behest of her family who were concerned about her emotional state and well-being. She told the EPS nurse that she is struggling with worsening anxiety, feelings of worthlessness, depression and thoughts of suicide. Her told the EPS nurse that he became concerned and when she expressed thoughts of suicide. The patient described increasing feelings depression that has worsened over the last 2 weeks. During this time she has withdrawn from friends and family. She described overwhelming feelings of worthlessness and hopelessness. She feels that she is a failure and perseverated on hoahaoism themes that she has failed her family, her hinduism and God. She described impairments with sleep, appetite, energy, concentration, hedonia and thoughts of suicide. She denied suicide intent or plan. She has a history of chronic inflammatory demyelinating polyneuropathy that has contributed to her decreasing dependence and feelings of hopelessness. At home, she walks with the assistance of a walker or with the help of friends and family. She denied experiencing periods of elevated mood or sustained irritability suggestive of daisy or hypomania. With the increasing depression she described increasing anxiety but denied episodes of increased anxiety consistent with panic attacks. She has hoahaoism ruminations but did not describe clear obsessions or compulsive behaviors. She denied use of alcohol or drugs. She denied experiencing auditory, visual or olfactory hallucinations, ideas reference, thought insertion, thought broadcasting or thought control."" Hospital course: Upon admission to the unit patient was directable and agreeable to commence treatment and signed adult voluntary form. Patient got along well with other patients on the unit and followed unit protocol. Patient was compliant with the medications and denied any side effects throughout hospital course. Patient was started on Prozac titrated up to dose of 40 mg daily for mood/anxiety. Patient was also started on Zyprexa 5 mg daily at bedtime for mood stabilization/mood adjunct/insomnia. Patient spoke of her stressors and engaged in therapy both group and individual. Patient was also seen by medical team for history and physical exam. Patient had a computed tomography scan of her head upon admission which did not show any acute changes. Throughout the course of the hospitalization patient gradually improved with regards to mood, anxiety, sleep and returned back to their baseline level of functioning. On the day of discharge patient denied any suicidal or homicidal ideations intent or plan denied any auditory or visual hallucinations. Patient endorsed wanting to live for her family and her health. The patient denied any access to guns or weapons. Patient denied any paranoia and did not endorse any delusions. Chioma shukla does not have a significant history of substance abuse however was counseled on abstaining from all substances including alcohol and marijuana. Patient was also counseled on the medications and need for regular compliance and was encouraged to follow-up with their outpatient appointment for mental health and also for primary care. Prior to discharge a family meeting will be arranged by social media editor to answer any questions and ensure safety upon discharge. Meter Shop Supervisor did speak with patient's over the phone wang and answered multiple questions related to patient's diagnosis and treatment plan. Mental status exam: General Appearance: Patient appears to be thin, using a walker, stated age is alert, pleasant, and attempts to be cooperative. Patient is in no acute distress and has improved hygiene and grooming Behavior: Patient is calmly seated without any agitated behavior. Directable. Speech: Patient's speech is fluent and nonpressured. Mood/Affect: Patient reports their mood is "ok", affect is congruent Suicidality/Homicidality: Patient denies having any suicidal or homicidal ideation intent or plan. Perceptions: Patient denies any auditory or visual hallucinations. Though content/process: There is no evidence of any delusional thought content and thought process is linear and goal-directed. Memory and concentration: AOX3, grossly intact for the purposes of this session. Can spell "WORLD" backwards correctly. Judgment and insight: chronically poor, however has improved with guarded prognosis Impression: Depressive disorder unspecified, rule out major depressive disorder with psychotic features versus depressive disorder secondary to a general medical/neurological condition Generalized anxiety disorder Plan: -Continue with discharge today as patient has improved and stabilized psychiatrically and is not currently an imminent threat to herself and/or others. -Continue medications: Prozac 40 mg daily for mood/anxiety, Zyprexa 5 mg daily at bedtime for mood adjunct/mood stabilization/insomnia. -Patient was counseled on the need for medication compliance and appropriate follow-up at mental health and also primary care for medical issues. Patient verbalized understanding and agreed. -Social work to arrange for and conduct family meeting to ensure safety upon discharge and answer any questions/concerns. Social work also to arrange for patients follow up appointments for psychiatric care along with follow up with primary care provider. -Patient counseled on abstaining from recreational drugs and marijuana and alcohol. Was informed/educated on the adverse effects on their physical and mental health. Patient verbally agreed and understood. -Patient was instructed to return to the hospital or seek immediate medical care if their psychiatric or medical symptoms do worsen or reoccur. Allergies Allergy/AdvReac Type Severity Reaction Status Date / Time No Known Allergies Allergy Verified 10/30/21 09:34 Laboratory Results WBC 5.5 k/uL (3.8-10.6) 11/04/21 13:45 RBC 4.04 m/uL (3.80-5.40) 11/04/21 13:45 Hgb 13.0 gm/dL (11.4-16.0) 11/04/21 13:45 Hct 39.2 % (34.0-46.0) 11/04/21 13:45 MCV 96.9 fL (80.0-100.0) 11/04/21 13:45 MCH 32.2 pg (25.0-35.0) 11/04/21 13:45 MCHC 33.2 g/dL (31.0-37.0) 11/04/21 13:45 RDW 14.0 % (11.5-15.5) 11/04/21 13:45 Plt Count 315 k/uL (150-450) 11/04/21 13:45 MPV 9.2 11/04/21 13:45 Neutrophils % 73 % 11/04/21 13:45 Lymphocytes % 18 % 11/04/21 13:45 Monocytes % 5 % 11/04/21 13:45 Eosinophils % 2 % 11/04/21 13:45 Basophils % 1 % 11/04/21 13:45 Neutrophils # 4.0 k/uL (1.3-7.7) 11/04/21 13:45 Lymphocytes # 1.0 k/uL (1.0-4.8) 11/04/21 13:45 Monocytes # 0.3 k/uL (0-1.0) 11/04/21 13:45 Eosinophils # 0.1 k/uL (0-0.7) 11/04/21 13:45 Basophils # 0.0 k/uL (0-0.2) 11/04/21 13:45 Sodium 139 mmol/L (137-145) 11/04/21 13:45 Potassium 4.0 mmol/L (3.5-5.1) 11/04/21 13:45 Chloride 103 mmol/L (98-107) 11/04/21 13:45 Carbon Dioxide 26 mmol/L (22-30) 11/04/21 13:45 Anion Gap 10 mmol/L 11/04/21 13:45 BUN 11 mg/dL (7-17) 11/04/21 13:45 Creatinine 0.74 mg/dL (0.52-1.04) 11/04/21 13:45 Est GFR (CKD-EPI)AfAm >90 (>60 ml/min/1.73 sqM) 11/04/21 13:45 Est GFR (CKD-EPI)NonAf 84 (>60 ml/min/1.73 sqM) 11/04/21 13:45 Glucose 104 mg/dL (74-99) H 11/04/21 13:[address] Glu mg/dL 118 11/04/21 13:45 Hemoglobin A1c 5.7 % (0.0-6.0) 11/04/21 13:45 Calcium 9.5 mg/dL (8.4-10.2) 11/04/21 13:45 Magnesium 2.0 mg/dL (1.6-2.3) 11/04/21 13:45 Total Bilirubin 0.7 mg/dL (0.2-1.3) 11/04/21 13:45 AST 35 U/L (14-36) 11/04/21 13:45 ALT 25 U/L (4-34) 11/04/21 13:45 Alkaline Phosphatase 86 U/L (38-126) 11/04/21 13:45 Total Protein 9.6 g/dL (6.3-8.2) H 11/04/21 13:45 Albumin 4.5 g/dL (3.5-5.0) 11/04/21 13:45 Triglycerides 60.80 mg/dL (0.00-149.00) 11/04/21 13:45 Cholesterol 165.00 mg/dL (0.00-200.00) 11/04/21 13:45 LDL Cholesterol, Calc 93.3 mg/dL (0.0-131.0) 11/04/21 13:45 VLDL Cholesterol, Calc 12.16 mg/dL (5.00-40.00) 11/04/21 13:45 HDL Cholesterol 59.50 mg/dL (40.00-60.00) 11/04/21 13:45 Cholesterol/HDL Ratio 2.77 Ratio 11/04/21 13:45 TSH 1.980 mIU/L (0.465-4.680) 11/04/21 13:45 Urine Color Colorless 11/04/21 13:45 Urine Appearance Clear (Clear) 11/04/21 13:45 Urine pH 6.5 (5.0-8.0) 11/04/21 13:45 Ur Specific [place] 1.004 (1.001-1.035) 11/04/21 13:45 Urine Protein Negative (Negative) 11/04/21 13:45 Urine Glucose (UA) Negative (Negative) 11/04/21 13:45 Urine Ketones Trace (Negative) H 11/04/21 13:45 Urine Blood Moderate (Negative) H 11/04/21 13:45 Urine Nitrite Negative (Negative) 11/04/21 13:45 Urine Bilirubin Negative (Negative) 11/04/21 13:45 Urine Urobilinogen <2.0 mg/dL (<2.0) 11/04/21 13:45 Ur Leukocyte Esterase Small (Negative) H 11/04/21 13:45 Urine RBC 2 /hpf (0-5) 11/04/21 13:45 Urine WBC 1 /hpf (0-5) 11/04/21 13:45 Ur Squamous Epith Cells <1 /hpf (0-4) 11/04/21 13:45 Urine Opiates Screen Not Detected (NotDetected) 11/04/21 13:45 Ur Oxycodone Screen Not Detected (NotDetected) 11/04/21 13:45 Urine Methadone Screen Not Detected (NotDetected) 11/04/21 13:45 Ur Propoxyphene Screen Not Detected (NotDetected) 11/04/21 13:45 Ur Barbiturates Screen Not Detected (NotDetected) 11/04/21 13:45 U Tricyclic Antidepress Not Detected (NotDetected) 11/04/21 13:45 Ur Phencyclidine Scrn Not Detected (NotDetected) 11/04/21 13:45 Ur Amphetamines Screen Not Detected (NotDetected) 11/04/21 13:45 U Methamphetamines Scrn Not Detected (NotDetected) 11/04/21 13:45 U Benzodiazepines Scrn Not Detected (NotDetected) 11/04/21 13:45 Urine Cocaine Screen Not Detected (NotDetected) 11/04/21 13:45 U Marijuana (THC) Screen Not Detected (NotDetected) 11/04/21 13:45 Coronavirus (PCR) Not Detected (Not Detectd) 11/04/21 17:07 Vital Signs Temp 97.6 F 11/12/21 07:05 Pulse 105 H 11/12/21 07:05 Resp 20 11/08/21 21:55 BP 132/76 11/12/21 07:05 Pulse Ox 97 11/12/21 07:05 FiO2 Patient Condition at Discharge: Stable Plan - Discharge Summary New Discharge Prescriptions: New FLUoxetine HCL [PROzac] 40 mg PO DAILY 30 Days cap OLANZapine [ZyPREXA] 5 mg PO HS 30 Days tab Continue Gabapentin [Neurontin] 300 mg PO HS Discharge Medication List Gabapentin [Neurontin] 300 mg PO HS 11/04/21 [History] FLUoxetine HCL [PROzac] 40 mg PO DAILY 30 Days cap 11/12/21 [Rx] OLANZapine [ZyPREXA] 5 mg PO HS 30 Days tab 11/12/21 [Rx] Follow up Appointment(s)/Referral(s): [facility] [Outside] - 1 Week Stephanie Orourke MD [Primary Care Provider] - 1-2 days Activity/Diet/Wound Care/Special Instructions: Avoid the use of street drugs and alcohol. Take all prescriptions as prescribed. When you are in need of refills on your medications, please contact your medical provider and/or outpatient psychiatrist to have this done. Please go to scheduled outpatient appointment for aftercare treatment. If symptoms return or become worse, call the crisis line at and/or go to the nearest emergency room for evaluation. Discharge Disposition: HOME SELF-CARE
== END 2021-11-12 11:35 | disposition home or self-care (01) | DRG 885 ==
LOC: EC 11:28 → 3MHU 17:45
PROVIDERS: ADMIT Psychiatry & Neurology Psychiatry; ATTEND Psychiatry & Neurology Psychiatry
DX: F32.3 Major depressive disorder, single episode, severe with psychotic features (principal); G61.81 Chronic inflammatory demyelinating polyneuritis; R45.851 Suicidal ideations; D89.89 Other specified disorders involving the immune mechanism, not elsewhere classified; Z20.822 Contact with and (suspected) exposure to COVID-19; R54 Age-related physical debility; D32.9 Benign neoplasm of meninges, unspecified; F41.1 Generalized anxiety disorder; G47.00 Insomnia, unspecified; R26.9 Unspecified abnormalities of gait and mobility; Z79.899 Other long term (current) drug therapy; Z90.710 Acquired absence of both cervix and uterus; Z87.42 Personal history of other diseases of the female genital tract; Z98.891 History of uterine scar from previous surgery; Z87.81 Personal history of (healed) traumatic fracture; Z98.890 Other specified postprocedural states; Z82.3 Family history of stroke; Z80.0 Family history of malignant neoplasm of digestive organs; Z83.3 Family history of diabetes mellitus; Z82.61 Family history of arthritis; Z82.49 Family history of ischemic heart disease and other diseases of the circulatory system; Z83.1 Family history of other infectious and parasitic diseases
CPT/HCPCS: 36415; 70450; 80053; 80061; 80306; 81001; 82075; 83036; 83735; 84443; 85025; 87635; 99285